=== PATIENT | female | born 1945 | race African-American/Black ===

== ENCOUNTER 2017-08-23 12:15 | Outpatient (CLI) | payer MEDICARE, MEDICAID ==
--- NOTE | 2017-08-23 16:40 | PET ---
PET CT 08/23/17 HISTORY: 72-year-old female with non-small lung cancer diagnosed in September 2015. Patient also has history of colon cancer diagnosed in 2002. Exam is requested for restaging. Last radiation therapy was two year s ago. TECHNIQUE: PET scan with CT attenuation correction was performed from the base of the brain through the proximal thighs following the intravenous administration of 10.8 millicuries of 15-fluorodeoxyglucose in the right antecubital fossa. Imaging was performed after an uptake interval of 47 minutes. COMPARISON: PET CT dated 11/26/16. FINDINGS: No kyleigh hypermetabolism is seen in the neck, chest, axilla, abdomen or pelvis. No hypermetabolic pul monary nodules, liver or adrenal lesions are identified. There is continued increased uptake in the previously seen right 6th, 7th, and 8th rib fractures with a current maximum SUV of 2.7 (previously 3.4). No other hypermetabolic osseous lesions are seen. There is physiologic activity in the GI and tracts and the visualized portions of the brain. The CT scan used for attenuation correction demonstrates no evidence of pleural effusions or ascites. IMPRESSION: No evidence of metastatic disease. POS: [facility]
== END 2017-08-23 12:16 | disposition home or self-care (01) ==
LOC: PET 12:15
PROVIDERS: ATTEND Internal Medicine Hematology & Oncology
DX: C34.91 Malignant neoplasm of unspecified part of right bronchus or lung (principal)
CPT/HCPCS: 78815; A9552

== ENCOUNTER 2017-10-31 22:22 | Observation (INO) | payer MEDICARE, MEDICAID ==
--- NOTE | 2017-10-31 23:01 | RAD ---
TWO VIEWS CHEST 10/31/17 PROVIDED CLINICAL HISTORY: Cough. FINDINGS: Comparison 06/25/08. The cardiac and mediastinal silhouette is within normal limits. Left subclavian cardiac pacing device is noted with lead tips in expected locations of RA and RV. No focal consolidation, pleural fluid or pneumothorax apparent. IMPRESSION: No evidence for acute cardiopulmonary process. POS: [facility]
[2017-10-31] MEDS ORDERED: Acetaminophen 500 MG TAB ONE (23:12)
[2017-10-31 23:32] LABS: Bilirubin Negative (Negative); Blood, Urine Negative (Negative); Clarity CLEAR (Clear); Glucose, Urine (Dipstick) Negative (Negative); Leukocyte Negative (Negative); Nitrite Negative (Negative); Protein, Urine (Dipstick) Trace mg/dL (Neg-Trace); Specific Gravity, Urine 1.012 (1.002-1.036); pH, Urine 6.5 (5.0-9.0)
[2017-11-01 00:34] LABS: #Eosinphils 0.1 thou/uL (0.0-0.7); #Lymphocytes 1.1 thou/uL (1.20-3.40); #Monocytes 0.7 thou/uL (0.11-0.59); #Neutrophils 3.7 thou/uL (1.40-6.50); %Basophils 0.2 % (0.0-1.0); %Eosinophils 2.1 % (0.0-10.0); %Lymphocytes 19.3 % (21.0-51.0); %Monocytes 11.8 % (0.0-10.0); %Neutrophils 66.6 % (42.0-75.0); Hemoglobin 11.7 g/dL (12.0-16.0); Mean Corpuscular HGB CONC 31.3 g/dL (32.0-36.0); Mean Corpuscular Hemoglobin 32.1 pg (27.0-31.0); Mean Platelet Volume 6.9 fL (7.4-10.4); Platelet Count 197 thou/uL (130-400); RBC Distribution Width 12.1 % (11.5-14.5); Red Blood Cell (RBC) Count 3.66 mill/uL (4.20-5.40); White Blood Cell (WBC) Count 5.5 thou/uL (4.8-10.8)
[2017-11-01 00:48] LABS: ALT (SGPT) 12 U/L (8-55); AST (SGOT) 15 U/L (5-34); Albumin 3.8 g/dL (3.4-4.8); Alkaline Phosphatase 84 U/L (40-150); Anion Gap 14 mmol/L (10-20); BUN (Urea Nitrogen) 21 mg/dL (9.8-20.1); Bilirubin, Total 0.2 mg/dL (0.2-1.2); Calc. Creatinine Clearance 0 mL/min (70-130); Calcium 9.4 mg/dL (7.8-10.44); Carbon Dioxide 25 mmol/L (23-31); Chloride 105 mmol/L (98-107); Estimated GFR-MDRD 39; Globulin 3.7 g/dL (2.4-3.5); Lipase 50 U/L (8-78); Magnesium 1.6 mg/dL (1.6-2.6); Potassium 4.7 mmol/L (3.5-5.1); Protein, Total 7.5 g/dL (6.0-8.3); Sodium 139 mmol/L (136-145)
[2017-11-01 00:52] LABS: Glucose 45 mg/dL (83-110)
[2017-11-01] MEDS ORDERED: methylPREDNISolone Sod Succ/PF 125 MG/2 ML VIAL ONE (01:13)
[2017-11-01 03:48] VITALS: BMI 36.9
[2017-11-01] MEDS ORDERED: HYDROcodone/Acetaminophen 10/325 mg Tablet PO SCH (04:45)
[2017-11-01] MEDS ORDERED: ALPRAZolam 1 MG TAB PO SCH (04:45)
[2017-11-01] MEDS ORDERED: Dextrose 50% Abboject 50 ML SYRINGE SLOW IVP PRN (07:44)
[2017-11-01] MEDS ORDERED: Insulin Regular 300 UNITS/3 ML VIAL SC PRN (07:44)
[2017-11-01] MEDS ORDERED: Dextrose 5% in Water 1,000 ML IV PRN (07:44)
[2017-11-01] MEDS ORDERED: Acetaminophen 325 MG TAB PO PRN (07:45)
[2017-11-01] MEDS ORDERED: Calcium Carbonate 500 MG ChewTAB PO PRN (07:45)
[2017-11-01] MEDS ORDERED: Senokot 8.6 MG TAB PO PRN (07:45)
[2017-11-01] MEDS ORDERED: Ondansetron HCl/PF 4 MG/2 ML Vial IVP PRN (07:45)
[2017-11-01] MEDS ORDERED: Ondansetron ODT 4 MG TAB PO PRN (07:45)
[2017-11-01] MEDS ORDERED: Nitroglycerin 0.4 MG TAB (25 Tab Bottle) SL PRN (07:47)
[2017-11-01] MEDS ORDERED: Fluticasone Propionate Nasal Spray 16 gm Bottle NASAL PRN (07:47)
[2017-11-01] MEDS ORDERED: methylPREDNISolone Sod Succ/PF 125 MG/2 ML VIAL IVP SCH (08:00)
[2017-11-01] MEDS ORDERED: Spironolactone 25 MG TAB PO SCH (09:00)
[2017-11-01] MEDS ORDERED: Losartan 25 MG TAB PO SCH (09:00)
[2017-11-01] MEDS ORDERED: Enoxaparin Sodium 40 MG/0.4 ML SYRINGE SC SCH (09:00)
[2017-11-01] MEDS ORDERED: Spiriva 18 MCG CAP (Box of 5 Caps) INH SCH (09:00)
[2017-11-01] MEDS ORDERED: cloNIDine 0.1 MG TAB PO SCH (09:00)
[2017-11-01] MEDS ORDERED: Benzonatate 100 MG CAP PO PRN (09:48)
[2017-11-01] MEDS ORDERED: Cepastat Lozenges 1 LOZ PO PRN (09:48)
[2017-11-01] MEDS ORDERED: Diabetic Tussin 200 MG/10 ML UDCUP PO PRN (09:48)
[2017-11-01] MEDS ORDERED: guaiFENesin/Codeine Phosphate 200 mg/20 mg 10 ml UD Cup PO PRN (09:55)
[2017-11-01] MEDS ORDERED: hydrALAZINE 20 MG/ML VIAL SLOW IVP PRN (09:56)
[2017-11-01] MEDS ORDERED: Oseltamivir 75 MG CAP PO SCH (10:00)
[2017-11-01] MEDS ORDERED: cefTRIAXone\\ROCEPHIN 1 GM in Sodium Chloride 0.9% 100 ML IVPB SCH (10:00)
[2017-11-01] MEDS ORDERED: Doxycycline 100 MG CAP PO SCH (10:00)
[2017-11-01] MEDS: Docusate 100 MG CAP PO SCH ×2 (10:20→20:34)
[2017-11-01] MEDS: guaiFENesin ER 600 MG TAB PO SCH ×2 (10:21→20:34)
[2017-11-01] MEDS: Famotidine 20 MG TAB PO SCH ×2 (10:21→20:33)
[2017-11-01] MEDS: Gabapentin 300 MG CAP PO SCH ×3 (10:23→20:34)
[2017-11-01] MEDS: Atorvastatin Calcium 20 MG TAB PO SCH (10:23)
[2017-11-01] MEDS: Carvedilol 3.125 MG TAB PO SCH ×2 (10:24→20:34)
--- NOTE | 2017-11-01 10:31 | HP ---
DATE OF ADMISSION: 11/01/2017 PRIMARY CARE PHYSICIAN: Dr. Shaggy Murray at [facility]. PRIMARY ED TECH: Dr. Luong at [facility]. CHIEF COMPLAINT: Shortness of breath with fever and generalized weakness of 2 days duration. HISTORY OF PRESENT ILLNESS: Patient is a 72-year-old female with COPD, chronic systolic and diastolic heart failure, status post AICD, diabetes mellitus type 2 , history of lung cancer status post radiation, and chronic kidney disease stage 3, who presented to the emergency room with above complaints. Over the last two days, the patient developed gradual worsening cough that was productive of small amount of thick phlegm. She also had fever along with chills. She complains of chest tightness and wheezing. One of a family member was recently diagnosed with flu. She felt generally weak and fatigued. No orthopnea, leg swelling, palpitations, or syncope reported. She denies recent immobilization or travel. In the emergency room, her maximum temperature was 101.5 with respiration of 22 , pulse rate of 106, and blood pressure 129/86 with initial oxygen saturation of 89% on room air. Chest x-ray was negative for infiltrate. Influenza testing was negative. She received Solu-Medrol with IV steroids, DuoNebs, and Tylenol in the emergency room. PAST MEDICAL HISTORY: 1. Chronic systolic and diastolic heart failure, status post AICD. 2. Chronic obstructive pulmonary disease. 3. Diabetes mellitus type 2. 4. Hypertension. 5. History of lung cancer, status post radiation. 6. Chronic kidney disease, stage 3. 7. Hypertension. 8. Chronic anemia. 9. Chronic obstructive pulmonary disease. 10. Tobacco dependence. 11. Obstructive sleep apnea, not on CPAP. 12. Glaucoma. 13. History of left upper extremity DVT. 14. Anxiety, depression, and bipolar disorder. PAST SURGICAL HISTORY: 1. Colon cancer surgery. 2. Appendectomy. 3. Cholecystectomy. 4. Hernia repair. 5. Tonsillectomy. 6. Colectomy. ALLERGIES: No known drug allergies. CURRENT HOME MEDICATIONS: The patient is unable to recall all of her home medications. Family to get accurate list of medications later today. SOCIAL HISTORY: Patient uses smokeless tobacco. No alcohol or drug use. Lives at home with her family. She is FULL CODE, makes her own decision. FAMILY HISTORY: Negative for premature coronary artery disease, stroke, or cancer. REVIEW OF SYSTEMS: The following complete review of systems was negative, unless otherwise mentioned in the HPI or below: Constitutional: Weight loss or gain, ability to conduct usual activities. Skin : Rash, itching. Eyes: Double vision, pain. ENT/Mouth: Nose bleeding, neck stiffness, pain, tenderness. Cardiovascular: Palpitations, dyspnea on exertion, orthopnea. Respiratory: Shortness of breath, wheezing, cough, hemoptysis, fever or night sweats. Gastrointestinal: Poor appetite, abdominal pain, heartburn, nausea, vomiting, constipation, or diarrhea. Genitourinary: Urgency, frequency, dysuria, nocturia. Musculoskeletal: Pain, swelling. Neurologic/Psychiatric: Anxiety, depression. Allergy/Immunologic: Skin rash, bleeding tendency. PHYSICAL EXAMINATION: VITAL SIGNS: As discussed above. GENERAL: A 72-year-old female in mild respiratory distress. Overall, feels much better after the ER treatments. HEENT: Head atraumatic, normocephalic. Sclerae anicteric. Moist mucous membranes. No oral lesion. NECK: Supple, no JVD appreciated. No carotid bruit. LUNGS: Showed scattered expiratory wheezing. No significant rhonchi or rales. There was mild accessory muscle use. Trachea was in midline. HEART: S1 and S2 present. Regular rate and rhythm, 2/6 systolic murmur over the mitral area. AICD noted. ABDOMEN: Soft, nontender, bowel sounds present. EXTREMITIES: No edema or calf tenderness. NEUROLOGIC: Grossly nonfocal, moves all four extremities. PSYCHIATRY: Alert, awake, oriented x3. SKIN: Warm and dry. LYMPH NODES: No palpable lymph nodes in the neck. PERIPHERAL VASCULAR: Radial pulses palpable bilaterally. MUSCULOSKELETAL: No joint swelling or tenderness. LABORATORY FINDINGS: CBC showed WBC 5.5 with hemoglobin 11.7, hematocrit 37.4, platelet of 197. Chemistries showed sodium 139, potassium 4.7, chloride 105, bicarb 25, BUN 21, creatinine 1.59. BNP was 89. Troponins not done. Urinalysis was negative. Influenza testing was negative. Chest x-ray by my review was negative for infiltrate. IMPRESSION: 1. Acute hypoxic respiratory failure due to Chronic obstructive pulmonary disease exacerbation. r/o Flu 2. Systemic inflammatory response syndrome secondary to above. 3. Chronic kidney disease, stage 3. 4. Obesity with a BMI of 37. 5. Chronic systolic and diastolic heart failure, status post AICD, followed by [facility]. 6. Ongoing tobacco dependence (smokeless tobacco). 7. Hypertension. 8. Hyperlipidemia. 9. Anxiety and depression. 10. Glaucoma. 11. History of lung cancer, status post radiation. PLAN: The patient will be monitored on the medical floor as a 23-hour observation. We will continue oxygen, nebulizer treatment, steroids, and antibiotics. We will get respiratory viral panel for possible influenza. We will give one dose of Tamiflu. Resume her home medications once confirmed. DVT prophylaxis with Lovenox. Walking program. Antitussives. Repeat labs in a.m. We will get one set of troponins due to her extensive cardiac history. Plan of care was discussed with the patient in detail. She stated understanding. ZELALEMD
[2017-11-01 11:03] LABS: Troponin I 0.013 ng/mL (< 0.028)
[2017-11-01] MEDS: HYDROcodone/Acetaminophen 5/325 mg Tablet PO PRN ×2 (12:38→22:08)
[2017-11-01] MEDS: cefTRIAXone\\ROCEPHIN 1 GM, Syringe 0.4 ML in Sterile Water 9.6 ML SLOW IVP SCH (12:39)
[2017-11-01] MEDS ORDERED: Insulin Detemir 100 UNITS/ML 10 UNITS in Pre-Filled Syringe 1 EACH SC SCH ×2 (13:15→21:15)
[2017-11-01] MEDS: cloNIDine 0.1 MG TAB PO SCH ×2 (15:00→20:35)
[2017-11-01] MEDS: glyBURIDE 5 MG TAB PO SCH (17:20)
[2017-11-01] MEDS: Insulin Regular 300 UNITS/3 ML VIAL SC PRN ×2 (17:21→20:36)
[2017-11-01] MEDS: Oseltamivir 75 MG CAP PO SCH (20:33)
[2017-11-01] MEDS: Doxycycline 100 MG CAP PO SCH (20:33)
[2017-11-01] MEDS ORDERED: cloNIDine 0.3 MG TAB PO SCH (21:00)
[2017-11-01] MEDS: ALPRAZolam 0.25 MG TAB PO PRN (22:08)
[2017-11-02] MEDS: Insulin Regular 300 UNITS/3 ML VIAL SC PRN ×4 (02:06→20:53)
[2017-11-02 05:51] LABS: #Lymphocytes 0.8 thou/uL (1.20-3.40); #Monocytes 0.4 thou/uL (0.11-0.59); #Neutrophils 5.5 thou/uL (1.40-6.50); %Basophils 0.2 % (0.0-1.0); %Eosinophils 0.2 % (0.0-10.0); %Lymphocytes 11.6 % (21.0-51.0); %Monocytes 6.3 % (0.0-10.0); %Neutrophils 81.7 % (42.0-75.0); Mean Corpuscular HGB CONC 31.6 g/dL (32.0-36.0); Mean Corpuscular Hemoglobin 32.2 pg (27.0-31.0); Mean Platelet Volume 7.6 fL (7.4-10.4); Platelet Count 175 thou/uL (130-400); RBC Distribution Width 11.9 % (11.5-14.5); Red Blood Cell (RBC) Count 3.73 mill/uL (4.20-5.40); White Blood Cell (WBC) Count 6.8 thou/uL (4.8-10.8)
[2017-11-02 05:59] LABS: ALT (SGPT) 12 U/L (8-55); AST (SGOT) 16 U/L (5-34); Albumin 3.8 g/dL (3.4-4.8); Alkaline Phosphatase 85 U/L (40-150); Anion Gap 13 mmol/L (10-20); BUN (Urea Nitrogen) 34 mg/dL (9.8-20.1); Bilirubin, Total Less than 0.2 mg/dL (0.2-1.2); Calc. Creatinine Clearance 55 mL/min (70-130); Calcium 8.7 mg/dL (7.8-10.44); Carbon Dioxide 25 mmol/L (23-31); Chloride 100 mmol/L (98-107); Estimated GFR-MDRD 34; Globulin 3.8 g/dL (2.4-3.5); Glucose 287 mg/dL (83-110); Potassium 6.2 mmol/L (3.5-5.1); Protein, Total 7.6 g/dL (6.0-8.3); Sodium 132 mmol/L (136-145)
[2017-11-02] MEDS ORDERED: Sodium Bicarb 50 MEQ/50 ML Abboject 8.4% SYRINGE IVP STA (07:14)
[2017-11-02] MEDS ORDERED: Insulin Regular 300 UNITS/3 ML VIAL IVP SCH (07:15)
[2017-11-02] MEDS ORDERED: Sodium Chloride 0.9% 500 ML IV SCH (07:15)
[2017-11-02] MEDS ORDERED: Furosemide 40 MG/4 ML VIAL SLOW IVP SCH (07:45)
[2017-11-02] MEDS ORDERED: predniSONE 20 MG TAB PO SCH (08:00)
[2017-11-02] MEDS: glyBURIDE 5 MG TAB PO SCH ×2 (08:25→16:32)
[2017-11-02] MEDS: Oseltamivir 75 MG CAP PO SCH ×2 (08:25→20:52)
[2017-11-02] MEDS: Atorvastatin Calcium 20 MG TAB PO SCH (08:25)
[2017-11-02] MEDS: Gabapentin 300 MG CAP PO SCH ×3 (08:25→20:52)
[2017-11-02] MEDS: Famotidine 20 MG TAB PO SCH ×2 (08:26→20:52)
[2017-11-02] MEDS: Docusate 100 MG CAP PO SCH ×2 (08:26→20:52)
[2017-11-02] MEDS: Doxycycline 100 MG CAP PO SCH ×2 (08:26→20:52)
[2017-11-02] MEDS: guaiFENesin ER 600 MG TAB PO SCH ×2 (08:26→20:52)
[2017-11-02] MEDS: Carvedilol 3.125 MG TAB PO SCH ×2 (08:27→20:53)
[2017-11-02] MEDS: cloNIDine 0.1 MG TAB PO SCH ×3 (08:27→21:32)
[2017-11-02] MEDS: HYDROcodone/Acetaminophen 5/325 mg Tablet PO PRN ×3 (08:40→21:33)
[2017-11-02] MEDS: ALPRAZolam 0.25 MG TAB PO PRN ×2 (08:40→20:52)
--- NOTE | 2017-11-02 09:40 | RAD ---
CHEST 2 VIEWS: COMPARISON: 10/31/17. HISTORY: Cough. Shortness of breath. Pneumonia. FINDINGS: Stable left-sided defibrillator. Magnification of cardiac silhouette likely due to technique. Pulmo nary vessels and hilum are normal. Costophrenic angles are clear. Patchy interstitial opacities in the lateral right lung base. Adequate aeration of the upper lungs. No pneumothorax. IMPRESSION: Patchy interstitial opacity in the lateral right lung base. POS: [facility]
[2017-11-02] MEDS: cefTRIAXone\\ROCEPHIN 1 GM, Syringe 0.4 ML in Sterile Water 9.6 ML SLOW IVP SCH (12:23)
[2017-11-02 12:38] LABS: Anion Gap 13 mmol/L (10-20); BUN (Urea Nitrogen) 38 mg/dL (9.8-20.1); Calc. Creatinine Clearance 51 mL/min (70-130); Calcium 8.3 mg/dL (7.8-10.44); Carbon Dioxide 27 mmol/L (23-31); Chloride 99 mmol/L (98-107); Estimated GFR-MDRD 31; Glucose 296 mg/dL (83-110); Sodium 134 mmol/L (136-145)
--- NOTE | 2017-11-02 14:22 | PDOC.PN ---
- Subjective Encounter Start Date: 11/02/17 Encounter Start Time: 14:00 Patient seen and examined. SOB/wheezing slowly improving. No overnight events - Objective Resuscitation Status: Resuscitation Status FULL:Full Resuscitation MAR Reviewed: Yes Vital Signs & Weight: Vital Signs (12 hours) Temp Pulse Resp BP BP Pulse Ox 11/02/17 11:38 87 16 94 L 11/02/17 11:30 98.3 F 79 22 H 114/73 98 11/02/17 08:27 110/57 L 11/02/17 08:00 98.2 F 87 22 H 110/57 L 99 11/02/17 07:25 78 16 100 11/02/17 06:23 98.5 F 66 18 121/79 99 Weight Weight 265 lb I&O: 11/01/17 11/02/17 11/03/17 06:59 06:59 06:59 Intake Total 360 Balance 360 Result Diagrams: 11/02/17 04:02 11/02/17 12:06 Additional Labs: Accuchecks 11/02/17 11/02/17 11/02/17 11:33 04:51 02:01 POC Glucose 336 H 299 H 286 H 11/01/17 11/01/17 20:25 16:08 POC Glucose 429 H 412 H Radiology Reviewed by me: Yes (Patchy infiltrate R base) Phys Exam - Physical Examination Constitutional: NAD Respiratory: no rhonchi Exp wheezing +, Scat rales at bases, Mild accessory muscle use, Symmetrical Cardiovascular: RRR, no rub no heaves/pulsations Gastrointestinal: soft, non-tender, no distention, positive bowel sounds Musculoskeletal: no edema Neurological: non-focal, moves all 4 limbs Psychiatric: A&O x 3 Dx/Plan - Plan DVT proph w/SCDs IMPRESSION: 1. Acute hypoxic respiratory failure due to Chronic obstructive pulmonary disease exacerbation with influenza B 2. Systemic inflammatory response syndrome due to influenza B with R basilar pneumonia ?Pneumococcal 3. VERA on Chronic kidney disease, stage 3 with severe hyperkalemia 4. Obesity with a BMI of 37. 5. Chronic systolic and diastolic heart failure, status post AICD, followed by [facility]. 6. Ongoing tobacco dependence (smokeless tobacco). 7. Hypertension. 8. Hyperlipidemia. 9. Anxiety and depression. 10. Glaucoma. 11. History of lung cancer, status post radiation. PLAN: * Patient received Kayexalate/Insulin and bicarb early today * Hold Aldactone/Losartan * AM labs * Home O2 assessment - Patient is 84 % on RA * Cont Tamiflu with Atbx * DC in AM if stable * Cont Levemir with sliding scale * Cont current meds as below Laboratory Tests 11/02/17 04:02 Potassium 6.2 H Review of Systems - Review of Systems Cardiovascular: negative: chest pain, palpitations, orthopnea, paroxysmal nocturnal dyspnea, edema, light headedness Gastrointestinal: negative: Nausea, Vomiting, Abdominal Pain, Diarrhea, Constipation, Melena, Hematochezia - Medications/Allergies Allergies/Adverse Reactions: Allergies Allergy/AdvReac Type Severity Reaction Status Date / Time No Known Allergies Allergy Verified 02/23/17 23:55 Medications: Current Medications Acetaminophen (Tylenol) 650 mg PO Q4H PRN PRN Reason: Headache/Fever or Pain Hydrocodone Bitart/Acetaminophen (Bastrop 5/325) 1 tab PO Q6H PRN PRN Reason: Moderate Pain (4-6) Last Admin: 11/02/17 08:40 Dose: 1 tab Albuterol/Ipratropium (Duoneb) 3 ml NEB [id number] PRN PRN Reason: SOB &/or Wheezing Albuterol/Ipratropium (Duoneb) 3 ml NEB [id number] [facility] Last Admin: 11/02/17 11:38 Dose: 3 ml Alprazolam (Xanax) 0.25 mg PO BIDPRN PRN PRN Reason: Anxiety Last Admin: 11/02/17 08:40 Dose: 0.25 mg Aspirin (Aspirin Chewable) 81 mg PO DAILY [facility] Last Admin: 11/02/17 08:25 Dose: 81 mg Atorvastatin Calcium (Lipitor) 20 mg PO DAILY [facility] Last Admin: 11/02/17 08:25 Dose: 20 mg Benzonatate (Tessalon) 100 mg PO TIDPRN PRN PRN Reason: Cough Calcium Carbonate (Tums) 1,000 mg PO Q4H PRN PRN Reason: Heartburn or Indigestion Carvedilol (Coreg) 3.125 mg PO BID [facility] Last Admin: 11/02/17 08:27 Dose: Not Given Clonidine (Catapres) 0.1 mg PO TID [facility] Last Admin: 11/02/17 08:27 Dose: Not Given Dextrose/Water (Dextrose 50%) 25 gm SLOW IVP PRN PRN PRN Reason: Hypoglycemia Docusate Sodium (Colace) 100 mg PO BID [facility] Last Admin: 11/02/17 08:26 Dose: 100 mg Doxycycline Hyclate (Vibramycin) 100 mg PO BID [facility] Last Admin: 11/02/17 08:26 Dose: 100 mg Famotidine (Pepcid) 20 mg PO BID [facility] Last Admin: 11/02/17 08:26 Dose: 20 mg Fluticasone Propionate (Flonase Nasal [place]) 0 gm NASAL DAILY PRN PRN Reason: Allergies Furosemide (Lasix) 40 mg PO DAILY-[facility] Gabapentin (Neurontin) 600 mg PO TID [facility] Last Admin: 11/02/17 08:25 Dose: 600 mg Glucagon (Glucagon) 1 mg IM PRN PRN PRN Reason: Hypoglycemia Glyburide (Diabeta) 5 mg PO BID-[facility] Last Admin: 11/02/17 08:25 Dose: 5 mg Guaifenesin (Mucinex) 600 mg PO Q12HR [facility] Last Admin: 11/02/17 08:26 Dose: 600 mg Guaifenesin (Robitussin Sf) 200 mg PO Q4H PRN PRN Reason: Cough Last Admin: 11/01/17 10:32 Dose: 200 mg Guaifenesin/Codeine Phosphate (Robitussin Ac) 5 ml PO Q4H PRN PRN Reason: Cough Hydralazine HCl (Apresoline) 10 mg SLOW IVP Q4H PRN PRN Reason: SBP Greater Than 180 Dextrose/Water (D5w) 1,000 mls @ 0 mls/hr IV .Q0M PRN; As Directed PRN Reason: Hypoglycemia Ceftriaxone Sodium 1 gm/ (Syringe 0.4 ml/ Sterile Water) 10 mls @ 120 mls/hr SLOW IVP Q24HR [facility] Last Admin: 11/02/17 12:23 Dose: 10 mls Insulin Detemir 10 units/ (Miscellaneous Medication) 0.1 mls @ 0 mls/hr NH NOW [facility] Stop: 11/02/17 23:15 Last Admin: 11/01/17 22:09 Dose: 0.1 mls Insulin Detemir 30 units/ (Miscellaneous Medication) 0.3 mls @ 0 mls/hr NH 1830 [facility] Insulin Human Regular (Humulin R) 0 units SC .BEDTIME SLIDING SC PRN PRN Reason: Bedtime Correctional Scale Last Admin: 11/02/17 02:06 Dose: 3 unit Insulin Human Regular (Humulin R) 0 units SC .MODERATE SLIDING SC PRN PRN Reason: Moderate Correctional Scale Last Admin: 11/02/17 12:25 Dose: 8 unit Nitroglycerin (Nitrostat) 0.4 mg SL Q5MIN PRN PRN Reason: Chest Pain Ondansetron HCl (Zofran Odt) 4 mg PO Q6H PRN PRN Reason: Nausea/Vomiting Ondansetron HCl (Zofran) 4 mg IVP Q6H PRN PRN Reason: Nausea/Vomiting Oseltamivir Phosphate (Tamiflu) 75 mg PO BID [facility] Stop: 11/05/17 21:01 Last Admin: 11/02/17 08:25 Dose: 75 mg Prednisone (Prednisone) 10 mg PO QA-[facility] Senna (Senokot) 2 tab PO HSPRN PRN PRN Reason: Constipation Sodium Chloride (Flush - Normal Saline) 10 ml IVF Q12HR [facility] Last Admin: 11/02/17 08:27 Dose: 10 ml Sodium Chloride (Flush - Normal Saline) 10 ml IVF PRN PRN PRN Reason: Saline Flush Throat Lozenges (Cepastat Lozenges) 1 zurdo PO Q2H PRN PRN Reason: Sore Throat Last Admin: 11/01/17 12:37 Dose: 1 zurdo
[2017-11-02] MEDS ORDERED: Insulin Detemir 100 UNITS/ML 30 UNITS in Pre-Filled Syringe 1 EACH SC SCH (18:30)
[2017-11-02] MEDS: Senokot S 8.6-50 MG TAB PO SCH (20:52)
[2017-11-02] MEDS ORDERED: Polyethylene Glycol 3350 17 GM Packet PO SCH (21:00)
[2017-11-03 05:26] LABS: Anion Gap 11 mmol/L (10-20); BUN (Urea Nitrogen) 32 mg/dL (9.8-20.1); Calc. Creatinine Clearance 58 mL/min (70-130); Calcium 8.7 mg/dL (7.8-10.44); Carbon Dioxide 36 mmol/L (23-31); Chloride 99 mmol/L (98-107); Estimated GFR-MDRD 36; Glucose 94 mg/dL (83-110); Potassium 4.6 mmol/L (3.5-5.1); Sodium 141 mmol/L (136-145)
[2017-11-03] MEDS: HYDROcodone/Acetaminophen 5/325 mg Tablet PO PRN (06:42)
[2017-11-03] MEDS ORDERED: Furosemide 40 MG TAB PO SCH (07:30)
[2017-11-03] MEDS ORDERED: predniSONE 20 MG TAB PO SCH (08:00)
[2017-11-03] MEDS: glyBURIDE 5 MG TAB PO SCH ×2 (08:14→15:54)
[2017-11-03] MEDS: Doxycycline 100 MG CAP PO SCH (08:14)
[2017-11-03] MEDS: Gabapentin 300 MG CAP PO SCH ×2 (08:15→15:53)
[2017-11-03] MEDS: guaiFENesin ER 600 MG TAB PO SCH (08:16)
[2017-11-03] MEDS: Oseltamivir 75 MG CAP PO SCH (08:16)
[2017-11-03] MEDS: Docusate 100 MG CAP PO SCH (08:16)
[2017-11-03] MEDS: Atorvastatin Calcium 20 MG TAB PO SCH (08:16)
[2017-11-03] MEDS: Famotidine 20 MG TAB PO SCH (08:16)
[2017-11-03] MEDS: Senokot S 8.6-50 MG TAB PO SCH (08:16)
[2017-11-03] MEDS: cloNIDine 0.1 MG TAB PO SCH ×2 (08:20→15:57)
[2017-11-03] MEDS: Carvedilol 3.125 MG TAB PO SCH (08:21)
[2017-11-03] MEDS: cefTRIAXone\\ROCEPHIN 1 GM, Syringe 0.4 ML in Sterile Water 9.6 ML SLOW IVP SCH (10:31)
[2017-11-03 11:30] VITALS: TEMP 99.6
--- NOTE | 2017-11-03 12:19 | RAD ---
CHEST 1 VIEW: HISTORY: A 72-year-old female with shortness of breath. COMPARISON: 11/02/17. COMPARISON: 11/02/17. FINDINGS: Left ICD. Minimal cardiomegaly. Slight increased markings in the right base with little change, pro bably slight improvement from the 11/02/17 2-view study. The left chest is stable. IMPRESSION: Improving but minimal persistent parenchymal change in the right lower lobe and costophrenic angle re gion. Consider another short-term followup study in 2-3 weeks to document clearing or stability. St able cardiomegaly and left implantable cardioverter defibrillator. No acute edema. POS: [facility]
[2017-11-03] MEDS: Insulin Regular 300 UNITS/3 ML VIAL SC PRN (12:37)
--- NOTE | 2017-11-03 13:00 | DIS ---
DATE OF DISCHARGE: 11/03/2017 DISCHARGE DISPOSITION: Home. FOLLOWUP: 1. Follow up with primary care physician, Dr. Murray at [facility]. 2. Follow up with primary infection preventionist at [facility] next week. 3. Chest x-ray after 4 weeks is recommended. Primary care physician is advised to follow. 4. Base met next week is recommended. Primary care physician is advised to follow. The patient was seen and examined on the day of discharge, denies any new complaints. Overall, gabet omatically feels better. BRIEF HOSPITAL COURSE: Patient is a 72-year-old female with COPD, chronic systolic and diastolic hea rt failure, status post AICD, and diabetes mellitus type 2, who presented to the hospital with shortn ess of breath with fever and generalized weakness of 2 days duration. Her temperature in the ER was 101.5 with respirations 22, pulse rate of 106 with O2 saturation of 89% on room air. Initial chest x -ray on admission was negative. Influenza testing was negative. PCR for respiratory virus was posit nyasia for influenza group B. The chest x-ray next day was positive for infiltrate at the right base. She was placed on steroids with antibiotics and Tamiflu for pneumonia/COPD exacerbation with influenz a B. The next day, her potassium was 6.2 from 4.7. For this reason, the losartan and Aldactone has been held. She will benefit from a repeat labs next week. She received Kayexalate with bicarbonate and insulin. Over the last 24 hours, her potassium has been stable. This morning her potassium is 4 .6. Creatinine today is 1.69 with a BUN 32. She will need a repeat bicarbonate testing next week. She was advised to hold losartan and Aldactone. Metformin has been discontinued due to elevated crea tinine as well. Plan of care was discussed with the patient and the family in detail, they stated understanding. DISCHARGE MEDICATIONS: 1. Prednisone 10 mg daily for next 4 days. 2. Omnicef 300 mg daily for 7 days. 3. Doxycycline 100 mg b.i.d. #14. 4. Mucinex twice a day. 5. Tamiflu 75 mg twice a day. 6. Other home medications were resumed. MEDICATIONS DISCONTINUED THIS ADMISSION: Metformin, losartan, and Aldactone due to potassium of 6.2. FINAL DIAGNOSES: 1. Acute hypoxic respiratory failure due to chronic obstructive pulmonary disease exacerbation with pneumonia and influenza B infection. 2. Systemic inflammatory response syndrome secondary to influenza B with right basilar pneumonia, vazquez spected pneumococcal. 3. Acute kidney injury on chronic kidney disease stage 3 with severe hyperkalemia, probably due to s epsis, improved. 4. Obesity with a BMI 37. 5. Chronic systolic and diastolic heart failure, status post AICD. 6. Ongoing smokeless tobacco dependence. 7. Hypertension. 8. Hyperlipidemia. 9. Anxiety and depression. 10. Glaucoma. 11. History of lung cancer, status post radiation. 12. Chronic anemia. 13. Obstructive sleep apnea, not on CPAP. Primary care physician advised to follow. 14. Glaucoma. 15. Anxiety, depression, and bipolar disorder. 16. Chronic respiratory failure, on home oxygen. Total time coordinating the discharge of this patient was 38 minutes. Home oxygen has been arranged.
--- NOTE | 2017-11-03 14:37 | RAD ---
KUB: DATE: 11/03/17. PROVIDED CLINICAL HISTORY: Abdominal pain. FINDINGS: The abdominal bowel gas pattern is nonspecific. Conspicuous colonic fecal retention suggests constip ation. Cholecystectomy clips are seen in the right upper quadrant. The supine nature of the study i s not sensitive for detection of pneumoperitoneum. IMPRESSION: Nonspecific bowel gas pattern. POS: [facility]
[2017-11-03 15:58] VITALS: BP 137/78
== END 2017-11-03 16:00 | disposition home or self-care (01) ==
LOC: ERS 22:22 → T4-B 11-01 02:00
PROVIDERS: ADMIT Internal Medicine Infectious Disease; ATTEND Internal Medicine Infectious Disease
DX: J44.9 Chronic obstructive pulmonary disease, unspecified (principal); J96.01 Acute respiratory failure with hypoxia; A41.89 Other specified sepsis; J10.1 Influenza due to other identified influenza virus with other respiratory manifestations; J10.00 Influenza due to other identified influenza virus with unspecified type of pneumonia; I13.0 Hypertensive heart and chronic kidney disease with heart failure and stage 1 through stage 4 chronic kidney disease, or unspecified chronic kidney disease; E11.22 Type 2 diabetes mellitus with diabetic chronic kidney disease; N18.3 Chronic kidney disease, stage 3 (moderate); I50.42 Chronic combined systolic (congestive) and diastolic (congestive) heart failure; G47.33 Obstructive sleep apnea (adult) (pediatric); F31.9 Bipolar disorder, unspecified; D63.1 Anemia in chronic kidney disease; N17.9 Acute kidney failure, unspecified; F17.290 Nicotine dependence, other tobacco product, uncomplicated; E87.5 Hyperkalemia; E78.5 Hyperlipidemia, unspecified; F41.8 Other specified anxiety disorders; H40.9 Unspecified glaucoma; E66.9 Obesity, unspecified; Z68.37 Body mass index [BMI] 37.0-37.9, adult; Z79.4 Long term (current) use of insulin; Z79.82 Long term (current) use of aspirin; Z79.51 Long term (current) use of inhaled steroids; Z79.899 Other long term (current) drug therapy; Z99.81 Dependence on supplemental oxygen; Z95.810 Presence of automatic (implantable) cardiac defibrillator; Z90.49 Acquired absence of other specified parts of digestive tract; Z90.89 Acquired absence of other organs; Z98.890 Other specified postprocedural states; Z86.718 Personal history of other venous thrombosis and embolism; Z92.3 Personal history of irradiation; Z85.118 Personal history of other malignant neoplasm of bronchus and lung
CPT/HCPCS: 71045; 71046 ×2; 74018; 80048 ×2; 80053 ×2; 81003; 82962 ×3; 83690; 83735 ×2; 83880; 84484; 85025 ×2; 87633; 87798 ×2; 87804 ×2; 94640 ×4; 96372; 96374; 96375 ×2; 96376 ×3; 97139 ×3; 99285; 99406; G0378 ×2; 36415; 36416; 96361; A4216; J0696; J1650; J1815; J1940; J2920; J2930; J7506; J7620

== ENCOUNTER 2017-12-01 22:29 | Emergency (ER) | payer MEDICARE, MEDICAID ==
[~2017-12-01 22:29] MED LIST: ISOVUE-370 76%-LOCM 1 ML ONE
[2017-12-01 22:59] LABS: #Eosinphils 0.1 thou/uL (0.0-0.7); #Lymphocytes 2.6 thou/uL (1.20-3.40); #Monocytes 0.5 thou/uL (0.11-0.59); #Neutrophils 2.9 thou/uL (1.40-6.50); %Basophils 0.4 % (0.0-1.0); %Eosinophils 2.3 % (0.0-10.0); %Lymphocytes 41.8 % (21.0-51.0); %Monocytes 7.6 % (0.0-10.0); %Neutrophils 47.9 % (42.0-75.0); Hemoglobin 12.4 g/dL (12.0-16.0); Mean Corpuscular HGB CONC 32.9 g/dL (32.0-36.0); Mean Corpuscular Hemoglobin 32.8 pg (27.0-31.0); Mean Corpuscular Volume 99.9 fl (81.0-99.0); Mean Platelet Volume 6.8 fL (7.4-10.4); Platelet Count 230 thou/uL (130-400); RBC Distribution Width 12.2 % (11.5-14.5); Red Blood Cell (RBC) Count 3.79 mill/uL (4.20-5.40); White Blood Cell (WBC) Count 6.1 thou/uL (4.8-10.8)
--- NOTE | 2017-12-01 23:00 | RAD ---
PORTABLE CHEST: 12/01/17 HISTORY: Abdominal pain. COMPARISON: 11/03/17. Mild Cardiomegaly. Dual lead pacemaker again noted. Lung berkowitz appear clear. No infiltrate or jonathan a apparent. IMPRESSION: No acute lung process. POS: [facility]
[2017-12-01 23:22] LABS: ALT (SGPT) 9 U/L (8-55); AST (SGOT) 16 U/L (5-34); Albumin 4.1 g/dL (3.4-4.8); Alkaline Phosphatase 90 U/L (40-150); Anion Gap 10 mmol/L (10-20); BUN (Urea Nitrogen) 12 mg/dL (9.8-20.1); Bilirubin, Total 0.4 mg/dL (0.2-1.2); Calc. Creatinine Clearance 0 mL/min (70-130); Carbon Dioxide 32 mmol/L (23-31); Chloride 102 mmol/L (98-107); Estimated GFR-MDRD 50; Globulin 4.1 g/dL (2.4-3.5); Glucose 89 mg/dL (83-110); Lipase 50 U/L (8-78); Potassium 3.3 mmol/L (3.5-5.1); Protein, Total 8.2 g/dL (6.0-8.3); Sodium 141 mmol/L (136-145)
[2017-12-01 23:23] LABS: Bilirubin Negative (Negative); Blood, Urine Negative (Negative); Clarity CLEAR (Clear); Glucose, Urine (Dipstick) Negative (Negative); Leukocyte Negative (Negative); Nitrite Negative (Negative); Protein, Urine (Dipstick) Trace mg/dL (Neg-Trace); Specific Gravity, Urine 1.015 (1.002-1.036); Urobilinogen 0.2 mg/dL (0.2-1.0)
[2017-12-01 23:25] LABS: CKMB 1.9 ng/mL (0-6.6); Troponin I 0.022 ng/mL (< 0.028)
[2017-12-01] MEDS ORDERED: Fentanyl 100 MCG/2 ML VIAL ONE (23:59)
--- NOTE | 2017-12-02 08:00 | CT ---
PRELIMINARY REPORT/[facility]/EMERGENCY AFTER HOURS PROCEDURE: EXAM: CT Angiography Chest With Intravenous Contrast CLINICAL HISTORY: 72 years old, female; Pain; Abdominal pain; Localized; Upper; Chest pain; Prior surgery; Patient HX: Er 21; F72 presents w/ upper abd pain and nausea since this morning. Pt denies bm changes. Pt denies urinary symptoms. Pt has had her gb removed 40 years ago. Pt reports pace maker and defibrillator. Pt reports HX of lung cancer and colon cancer. Pt was recently in the hospital for pneumonia and flu. TECHNIQUE: Axial computed tomographic angiography images of the chest with intravenous contrast using pulmonary embolism protocol. MIP reconstructed images were created and reviewed. Coronal reformatted images were created and reviewed. COMPARISON: No relevant prior studies available. FINDINGS: Pulmonary arteries: Unremarkable. No pulmonary embolism. Aorta: Normal aorta. No thoracic aortic aneurysm. Lungs: Scarring and subsegmental atelectasis in the right middle lobe and right lower lobe. Subsegmental atelectasis in lingula. Lungs otherwise clear. No mass. Pleural space: Unremarkable. No significant effusion. No pneumothorax. Heart: Cardiomegaly. Cardiac device in place. No significant pericardial effusion. No evidence of RV dysfunction. Mediastinum: The esophagus is unremarkable. Bones/joints: Incompletely healed fractures of the lateral right rib cage. No dislocation. Soft tissues: Unremarkable. Lymph nodes: Unremarkable. No enlarged lymph nodes. IMPRESSION: No acute findings. Thank you for allowing us to participate in the care of your patient. Dictated and Authenticated by: Arsen Almonte MD 12/02/2017 12:58 AM Central Time ([place] [employer] [place]) FINAL REPORT CT PULMONARY ANGIOGRAM WITH IV CONTRAST AND 3D POSTPROCESSING: Date: 12/01/17 FINDINGS/IMPRESSION: I agree with the preliminary report given by Arsen Almonte of [facility]. POS: [facility]
--- NOTE | 2017-12-02 08:02 | CT ---
PRELIMINARY REPORT/[facility]/EMERGENCY AFTER HOURS PROCEDURE: EXAM: CT Abdomen and Pelvis With Intravenous Contrast EXAM DATE/TIME: Exam ordered 12/02/2017 12:22 AM CLINICAL HISTORY: 72 years old, female; Pain; Abdominal pain; Localized; Upper; Chest pain; Prior surgery; Patient HX: Er 21; F72 presents w/ upper abd pain and nausea since this morning. Pt denies bm changes. Pt denies urinary symptoms. Pt has had her gb removed 40 years ago. Pt reports pace maker and defibrillator. Pt reports HX of lung cancer and colon cancer. Pt was recently in the hospital for pneumonia and flu. TECHNIQUE: Axial computed tomography images of the abdomen and pelvis with intravenous contrast. COMPARISON: No relevant prior studies available. FINDINGS: Lower thorax: No acute findings. ABDOMEN: Liver: Unremarkable. No mass. Gallbladder and bile ducts: Prior cholecystectomy. No ductal dilation. Pancreas: Unremarkable. No mass. No ductal dilation. Spleen: Unremarkable. No splenomegaly. Adrenals: Unremarkable. No mass. Kidneys and ureters: Indeterminate subcentimeter low-attenuation lesion in the right kidney may be a cyst. No hydronephrosis. Stomach and bowel: Fluid throughout colon of the small bowel and colon, nondilated, suspicious for ga stroenteritis/malabsorption. Colonic diverticulosis. No diverticulitis. No bowel wall thickening or intestinal obstruction. Appendix: Appendix not visualized. No evidence of appendicitis. PELVIS: Bladder: Unremarkable. No mass. Reproductive: Prominence of the endometrial stripe for patient age. ABDOMEN and PELVIS: Intraperitoneal space: Unremarkable. No free air. No significant fluid collection. Bones/joints: No acute fracture. No dislocation. Soft tissues: Chronic postsurgical changes of the anterior abdominal wall. Vasculature: Unremarkable. No abdominal aortic aneurysm. Lymph nodes: Unremarkable. No enlarged lymph nodes. IMPRESSION: 1. Prominence of the endometrial stripe for patient age. Recommend gynecology referral. 2. Fluid throughout colon of the small bowel and colon, nondilated, suspicious for gastroenteritis/ma labsorption. Thank you for allowing us to participate in the care of your patient. Dictated and Authenticated by: Arsen Almonte MD 12/02/2017 12:58 AM Central Time ([place] [employer] [place]) FINAL REPORT CT ABDOMEN AND PELVIS WITH IV CONTRAST: Date: 12/01/17 FINDINGS/IMPRESSION: I agree with the preliminary report given by Dr. Arsen Almonte of [facility]. POS: [facility]
== END 2017-12-02 01:42 | disposition home or self-care (01) ==
LOC: ERS 22:29
DX: K52.9 Noninfective gastroenteritis and colitis, unspecified (principal); E11.22 Type 2 diabetes mellitus with diabetic chronic kidney disease; F31.9 Bipolar disorder, unspecified; F20.9 Schizophrenia, unspecified; F17.220 Nicotine dependence, chewing tobacco, uncomplicated; I12.9 Hypertensive chronic kidney disease with stage 1 through stage 4 chronic kidney disease, or unspecified chronic kidney disease; J44.9 Chronic obstructive pulmonary disease, unspecified; N18.3 Chronic kidney disease, stage 3 (moderate); Z85.038 Personal history of other malignant neoplasm of large intestine; Z85.118 Personal history of other malignant neoplasm of bronchus and lung; Z79.4 Long term (current) use of insulin; Z79.82 Long term (current) use of aspirin; Z79.899 Other long term (current) drug therapy
CPT/HCPCS: 36415; 36416; 71045; 71275; 74177; 80053; 81003; 82553; 83605; 83690; 84484; 85025; 85379; 93005; 96361; 96374; J3010

== ENCOUNTER 2018-02-26 19:53 | Emergency (ER) | payer MEDICARE, MEDICAID ==
[2018-02-26] MEDS ORDERED: Ketorolac Tromethamine 60 MG/2 ML VIAL ONE (21:35)
--- NOTE | 2018-02-26 21:35 | RAD ---
RIGHT FOOT RADIOGRAPHS 3 VIEWS: Date: 02/26/18 PROVIDED CLINICAL HISTORY: Right foot pain. FINDINGS: There is no evidence for fracture or other acute osseous abnormality. If there is persistent clinical concern, conservative management and follow-up imaging are advised. IMPRESSION: As above. POS: [facility]
== END 2018-02-26 21:54 | disposition home or self-care (01) ==
LOC: ERS 19:53
DX: M79.671 Pain in right foot (principal); I12.9 Hypertensive chronic kidney disease with stage 1 through stage 4 chronic kidney disease, or unspecified chronic kidney disease; E11.22 Type 2 diabetes mellitus with diabetic chronic kidney disease; F17.220 Nicotine dependence, chewing tobacco, uncomplicated; N18.3 Chronic kidney disease, stage 3 (moderate); F41.9 Anxiety disorder, unspecified; F31.9 Bipolar disorder, unspecified; F20.9 Schizophrenia, unspecified; J44.9 Chronic obstructive pulmonary disease, unspecified; Z85.038 Personal history of other malignant neoplasm of large intestine; Z85.118 Personal history of other malignant neoplasm of bronchus and lung
CPT/HCPCS: 96372; J1885

== ENCOUNTER 2018-08-11 17:37 | Emergency (ER) | payer MEDICARE, MEDICAID ==
[2018-08-11] MEDS ORDERED: HYDROcodone/Acetaminophen 10/325 mg Tablet ONE (18:24)
--- NOTE | 2018-08-11 18:51 | RAD ---
THREE VIEWS RIGHT SHOULDER: 08/11/18 HISTORY: Fall. Right shoulder pain. AP, internally, externally, and scapular Y-views right shoulder obtained. Three views right shoulder demonstrates no evidence of right shoulder fractures, subluxations or bony lesions. IMPRESSION: Normal three views right shoulder. POS: [facility]
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
== END 2018-08-11 19:54 | disposition home or self-care (01) ==
LOC: ERS 17:37
DX: S40.011A Contusion of right shoulder, initial encounter (principal); S70.01XA Contusion of right hip, initial encounter; J44.9 Chronic obstructive pulmonary disease, unspecified; E11.9 Type 2 diabetes mellitus without complications; I13.0 Hypertensive heart and chronic kidney disease with heart failure and stage 1 through stage 4 chronic kidney disease, or unspecified chronic kidney disease; I50.9 Heart failure, unspecified; N18.3 Chronic kidney disease, stage 3 (moderate); F41.9 Anxiety disorder, unspecified; F31.9 Bipolar disorder, unspecified; F20.9 Schizophrenia, unspecified; F17.220 Nicotine dependence, chewing tobacco, uncomplicated; V89.9XXA Person injured in unspecified vehicle accident, initial encounter
CPT/HCPCS: 71046; 72170; 93005

== ENCOUNTER 2018-10-28 05:14 | Inpatient (IN) | payer MEDICARE, MEDICAID ==
[2018-10-28 06:09] LABS: #Basophils 0.1 thou/uL (0.0-0.2); #Eosinphils 0.1 thou/uL (0.0-0.7); #Monocytes 0.4 thou/uL (0.11-0.59); #Neutrophils 3.2 thou/uL (1.40-6.50); %Basophils 1.2 % (0.0-1.0); %Lymphocytes 34.6 % (21.0-51.0); %Neutrophils 55.2 % (42.0-75.0); Hemoglobin 11.6 g/dL (12.0-16.0); Mean Corpuscular HGB CONC 31.5 g/dL (32.0-36.0); Mean Corpuscular Hemoglobin 31.9 pg (27.0-31.0); Mean Platelet Volume 7.2 fL (7.4-10.4); Platelet Count 188 thou/uL (130-400); RBC Distribution Width 11.9 % (11.5-14.5); Red Blood Cell (RBC) Count 3.64 mill/uL (4.20-5.40); White Blood Cell (WBC) Count 5.8 thou/uL (4.8-10.8)
[2018-10-28 06:24] LABS: ALT (SGPT) 10 U/L (8-55); AST (SGOT) 13 U/L (5-34); Albumin 3.8 g/dL (3.4-4.8); Alkaline Phosphatase 96 U/L (40-150); Anion Gap 13 mmol/L (10-20); BUN (Urea Nitrogen) 23 mg/dL (9.8-20.1); Bilirubin, Total 0.3 mg/dL (0.2-1.2); Calc. Creatinine Clearance 0 mL/min (70-130); Calcium 9.5 mg/dL (7.8-10.44); Carbon Dioxide 24 mmol/L (23-31); Chloride 110 mmol/L (98-107); Estimated GFR-MDRD 43; Globulin 3.2 g/dL (2.4-3.5); Glucose 141 mg/dL (83-110); Potassium 4.5 mmol/L (3.5-5.1); Sodium 142 mmol/L (136-145)
[2018-10-28] MEDS ORDERED: Morphine 4 MG/ML VIAL ONE (07:15)
[2018-10-28] MEDS ORDERED: HumaLOG 300 UNITS/3 ML VIAL SC PRN (07:51)
[2018-10-28] MEDS ORDERED: Dextrose 5% in Water 1,000 ML IV PRN (07:51)
[2018-10-28] MEDS ORDERED: Dextrose 50% Abboject 50 ML SYRINGE SLOW IVP PRN (07:51)
--- NOTE | 2018-10-28 08:18 | RAD ---
PORTABLE CHEST: Date: 10/28/18 PROVIDED CLINICAL HISTORY: Shortness of breath. FINDINGS: Comparison with 12/01/17. Cardiac and mediastinal silhouette is unchanged in appearance. Evaluation is limited by patient body habitus. Left subclavian cardiac pacing device is redemonstrated. No lobar consolidation, large effus ion, or pneumothorax evident. IMPRESSION: No definite evidence for an acute cardiopulmonary process. POS: [facility]
--- NOTE | 2018-10-28 08:44 | CT ---
PRELIMINARY REPORT/[facility]/EMERGENTY AFTER-HOURS PROCEDURE CT Head Without Contrast EXAM DATE/TIME: 10/28/2018 6:13 AM CLINICAL HISTORY: 73 years old, female; Pain; Headache; Headache not specified; Patient HX: 73f presents for evaluation of headache since 0415 this morning. Patient reports she was laying down and all of a sudden could h ear and feel her heartbeat in her head. Patient C/O irritation and pain in head, no other symptoms. TECHNIQUE: Axial computed tomography images of the head/brain without contrast. COMPARISON: No relevant prior studies available. FINDINGS: Brain: There is benign calcification of the falx cerebri. There is no evidence of intracranial hemorr moisés. There are scattered foci of hypoattenuation within the periventricular and subcortical white matter compatible with mild chronic microvascular ischemic change. There is mild parenchymal vo lume loss Ventricles: Normal. No ventriculomegaly. Bones/joints: Normal. No acute fracture. Sinuses: Normal as visualized. No acute sinusitis. Mastoid air cells: Normal as visualized. No mastoid effusion. Soft tissues: Normal. IMPRESSION: No acute intracranial hemorrhage. Thank you for allowing us to participate in the care of your patient. Dictated and Authenticated by: Wilfredo Mann MD 10/28/2018 6:33 AM Central Time ([place] & [place]) FINAL REPORT EMERGENCY AFTER HOURS CT BRAIN: Date: 10/28/18 IMPRESSION: I agree with the preliminary interpretation given by Val. No evidence for intracranial hemorrhage or mass effect. No significant interval change with respect of 02/23/17. POS: [facility]
[2018-10-28] MEDS ORDERED: Regadenoson 0.4 MG/5 ML SYRINGE ONE (09:25)
--- NOTE | 2018-10-28 09:34 | HP ---
CHIEF COMPLAINT: Chest pain and sudden onset of ability to hear and feel heartbeat in her head. HISTORY OF PRESENT ILLNESS: The patient is a 73-year-old a female, who has multiple medical problems and one of them is insomnia and around 4 o'clock, she was not able to sleep and she started having some feeling of heartbeat in her head. This was a new finding. She never had this before. She started having some headache and felt flushed. She called her daughter and the daughter called EMS. When EMS arrived, she also had some complaints of some chest tightness across the front chest and feeling dizzy. There was mild nausea. No vomiting. No abdominal pain or diarrhea. She was brought to the emergency room for further evaluation. She is getting admitted to the hospital for further evaluation for observation and cardiac monitoring. PAST MEDICAL HISTORY: Positive for: 1. Chronic systolic and diastolic heart failure, status post AICD. Apparently, she had an AICD checked over the phone 3 days ago. 2. Chronic obstructive pulmonary disease. 3. Diabetes mellitus type 2. 4. Hypertension. 5. History of lung cancer, status post radiation. 6. Chronic kidney disease, stage 3. 7. Chronic anemia. 8. Tobacco dependence in the past. 9. Obstructive sleep apnea, not on CPAP. 10. Glaucoma. 11. History of left upper extremity DVT. 12. Anxiety, depression and bipolar disorder. 13. Colon cancer. 14. Ventral hernia. PAST SURGICAL HISTORY: 1. Colon cancer surgery. 2. Appendectomy. 3. Cholecystectomy. 4. Hernia repair. 5. Tonsillectomy. 6. Colectomy. ALLERGIES: BENZONATATE. CURRENT MEDICATIONS: Please refer to the medications list. SOCIAL HISTORY: She used to smoke. She quit more than 20 years ago. She does not drink alcohol. She does not use any illicit drugs. FAMILY HISTORY: She does not know her biological parents. She was raised by her uncle. REVIEW OF SYSTEMS: CONSTITUTIONAL: Negative for weight loss or gain. EYES: Negative for eye pain and eye discharge. ENT: Negative for nasal bleeding and nasal congestion. CARDIOVASCULAR: Positive for chest pain and palpitations and some dyspnea. RESPIRATORY: Mild shortness of breath. No cough. GI: Negative for vomiting. Positive for nausea. : Negative for hematuria and dysuria. NEUROLOGIC: Positive for dizziness and mild headache. PSYCHIATRIC: Negative for homicidal or suicidal ideations. PHYSICAL EXAMINATION: GENERAL: She is not in any distress during my visit. She feels cold. She is covered with 3 blankets. VITAL SIGNS: Blood pressure 139/84, pulse is 90, respiratory rate is 22, pulse oximetry is 96% on room air. HEENT: Head is atraumatic and normocephalic. Eyes are PERRLA. Sclerae are nonicteric. Oral mucosa is somewhat dry. NECK: Supple. Some tender on the right side to palpation. CHEST: Lungs are clear. HEART: S1 and S2 normal. No S3. No S4. ABDOMEN: Soft, obese, nontender except for the epigastric area where it is according to her chronically tender. No guarding. No masses. EXTREMITIES: Trace of peripheral edema. NEUROLOGIC: She is alert and oriented x4. There is no any motor or sensory deficits present. Cranial nerves are intact. LABORATORY DATA: Labs showed white count of 5.8, hemoglobin 11.6, hematocrit 36.9, and platelet count 188,000. Sodium of 142, potassium 4.5, chloride 110, BUN 23, creatinine 1.44, glucose 141. BNP of 152.7. Troponin I less than 0.0010. The rest of chemistry is within normal limits. DIAGNOSTIC STUDIES: Chest x-ray did not show any acute cardiopulmonary problem. CT of the brain did not show any acute intracranial abnormalities. EKG, normal sinus rhythm with ventricular rate of 85 beats per minute. No ischemic changes. Borderline criteria for LVH. IMPRESSION: 1. Chest pain with some heart palpitation. 2. Nonischemic cardiomyopathy. 3. Status post automatic implantable cardioverter-defibrillator. 4. Chronic obstructive pulmonary disease. 5. Diabetes mellitus type 2. 6. Hypertension. 7. History of lung cancer, status post radiation. 8. Chronic kidney disease, stage 3. 9. Chronic anemia. 10. Obstructive sleep apnea, not on CPAP. 11. Glaucoma. 12. History of left upper extremity deep venous thrombosis. 13. Anxiety, depression and bipolar disorder. PLAN: Plan is to admit her to telemetry floor for observation. Condition is fair. Activity, bedrest and bathroom privileges. IV Hep-Lock. Heart healthy diabetic diet. Accu-Cheks a.c. and at bedtime and mild sliding scale with Humalog. Echocardiogram, carotid Doppler, and Cardiolite stress test. I will continue her home medications. I am waiting for the list and she will do 5000 units of heparin subcutaneously for DVT prophylaxis and we are going to obtain records of her recent interrogation of her pacemaker/defibrillator. Job ID: [id number]
--- NOTE | 2018-10-28 10:25 | ULT ---
BILATERAL CAROTID DUPLEX ULTRASOUND: Date: 10/28/18 HISTORY: Headache, dizziness, syncope. FINDINGS: Real-time color Doppler evaluation of the right and left carotid systems shows mild plaque formation bilaterally, slightly more prominent at the origin of the right internal carotid artery. On the right side, peak systolic velocities of the common carotid were 59 cm/second. Internal carotid velocities were 53 cm/second and external carotid velocities were 55 cm/second. On the left side, peak systolic velocities of the common carotid were 78 cm/second. Internal carotid velocities were 82 cm/second and external carotid velocities were 47 cm/second. Vertebral flow was antegrade bilaterally. IMPRESSION: No evidence of hemodynamically significant stenosis of either internal carotid artery. POS: [facility]
[2018-10-28 13:21] LABS: Troponin I Less than 0.010 ng/mL (< 0.028)
[2018-10-28] MEDS: ALPRAZolam 0.5 MG TAB PO SCH (14:01)
[2018-10-28] MEDS: Heparin 5,000 UNITS/ML VIAL SC SCH ×3 (15:29→21:11)
[2018-10-28 15:56] VITALS: BMI 37.9
[2018-10-28 16:22] LABS: Troponin I 0.013 ng/mL (< 0.028)
[2018-10-28] MEDS ORDERED: DEXTROMETHORPHAN PO PRN (16:42)
[2018-10-28] MEDS ORDERED: PROMETHAZINE PO PRN (16:42)
[2018-10-28] MEDS ORDERED: Nitroglycerin 0.4 MG TAB (25 Tab Bottle) SL PRN (16:42)
[2018-10-28] MEDS: metFORMIN 500 MG TAB PO SCH (17:14)
[2018-10-28] MEDS: HYDROcodone/Acetaminophen 10/325 mg Tablet PO PRN (17:14)
[2018-10-28] MEDS: glyBURIDE 5 MG TAB PO SCH (17:18)
[2018-10-28] MEDS: ALPRAZolam 1 MG TAB PO PRN (18:25)
[2018-10-28] MEDS ORDERED: Non-Formulary Item 1 EACH (Insulin Glargine,Hum.Rec.Anlog [Lantus Solostar] 30 UNIT) SQ SCH (21:00)
[2018-10-28] MEDS: Famotidine 20 MG TAB PO SCH (21:11)
[2018-10-28] MEDS: Insulin Glargine 30 UNITS in Pre-Filled Syringe SC SCH (21:11)
[2018-10-28] MEDS: Carvedilol 6.25 MG TAB PO SCH (21:11)
[2018-10-28] MEDS: Gabapentin 300 MG CAP PO SCH (21:11)
[2018-10-28] MEDS: guaiFENesin ER 600 MG TAB PO SCH (21:11)
[2018-10-28] MEDS: cloNIDine 0.3 MG TAB PO SCH (21:11)
[2018-10-28] MEDS: Sacubitril 49 MG/Valsartan 51 MG TABLET PO SCH (21:12)
[2018-10-28] MEDS: Temazepam 15 MG CAP PO PRN (21:12)
[2018-10-29] MEDS: HYDROcodone/Acetaminophen 10/325 mg Tablet PO PRN ×2 (04:25→11:26)
[2018-10-29 04:47] LABS: #Eosinphils 0.1 thou/uL (0.0-0.7); #Lymphocytes 1.5 thou/uL (1.20-3.40); #Monocytes 0.4 thou/uL (0.11-0.59); #Neutrophils 2.4 thou/uL (1.40-6.50); %Basophils 0.3 % (0.0-1.0); %Eosinophils 2.8 % (0.0-10.0); %Monocytes 9.8 % (0.0-10.0); %Neutrophils 54.1 % (42.0-75.0); Hemoglobin 10.8 g/dL (12.0-16.0); Mean Corpuscular HGB CONC 31.7 g/dL (32.0-36.0); Mean Corpuscular Hemoglobin 32.4 pg (27.0-31.0); Mean Platelet Volume 8.1 fL (7.4-10.4); Platelet Count 157 thou/uL (130-400); RBC Distribution Width 11.9 % (11.5-14.5); Red Blood Cell (RBC) Count 3.33 mill/uL (4.20-5.40); White Blood Cell (WBC) Count 4.4 thou/uL (4.8-10.8)
[2018-10-29 05:08] LABS: Anion Gap 13 mmol/L (10-20); BUN (Urea Nitrogen) 18 mg/dL (9.8-20.1); Calc. Creatinine Clearance 80 mL/min (70-130); Carbon Dioxide 21 mmol/L (23-31); Chloride 109 mmol/L (98-107); Estimated GFR-MDRD 51; Glucose 146 mg/dL (83-110); Potassium 4.9 mmol/L (3.5-5.1); Sodium 138 mmol/L (136-145)
[2018-10-29] MEDS: Gabapentin 300 MG CAP PO SCH ×3 (09:00→21:24)
[2018-10-29] MEDS ORDERED: Aspirin Chewable 81 MG TAB PO SCH (09:00)
[2018-10-29] MEDS: Famotidine 20 MG TAB PO SCH ×2 (09:00→21:24)
[2018-10-29] MEDS: Spironolactone 25 MG TAB PO SCH (09:00)
[2018-10-29] MEDS: glyBURIDE 5 MG TAB PO SCH ×2 (09:00→17:28)
[2018-10-29] MEDS: metFORMIN 500 MG TAB PO SCH ×2 (09:00→17:28)
[2018-10-29] MEDS: Aspirin 325 MG TAB PO SCH (09:00)
[2018-10-29] MEDS: guaiFENesin ER 600 MG TAB PO SCH ×2 (09:01→21:25)
[2018-10-29] MEDS: Sacubitril 49 MG/Valsartan 51 MG TABLET PO SCH ×2 (09:01→21:25)
[2018-10-29] MEDS: Carvedilol 6.25 MG TAB PO SCH ×2 (09:01→21:24)
[2018-10-29] MEDS: Heparin 5,000 UNITS/ML VIAL SC SCH ×3 (09:01→21:25)
[2018-10-29] MEDS: ALPRAZolam 0.5 MG TAB PO SCH (11:21)
--- NOTE | 2018-10-29 12:04 | NM ---
CARDIAC SPECT: CLINICAL HISTORY: 73-year-old female with chest pain, hypertension, diabetes, COPD, AICD, CHF, and deep venous thrombos is. TECHNIQUE: A myocardial perfusion scan was performed using the single isotope two day protocol with 33 mCi techn etium-99m sestamibi injected intravenously for both stress and rest images. Pharmacologic stress with Lexiscan was monitored and interpreted by Dr. Cedeno. FINDINGS: There are fixed defects in the anteroseptal and inferior izaguirre. No reversible defects are seen. GATED SPECT LVEF: 28%. WALL MOTION EXAM: Global hypokinesis. IMPRESSION: No evidence of reversible ischemia. POS: [facility]
--- NOTE | 2018-10-29 15:19 | PRG ---
DATE OF SERVICE: 10/29/2018 SUBJECTIVE: The patient is seen and examined at bedside. She just came back from the stress test. She has this pounding headache. She feels her heartbeat in the head, which comes and goes home. OBJECTIVE: VITAL SIGNS: Blood pressure is 109/55, pulse is 72, temperature is 97.3, respirations 20, and O2 saturation 96% on room air. HEENT: Head is atraumatic and normocephalic. Eyes are PERRLA. Sclerae are nonicteric. Oral mucosa is moist. NECK: Supple. LUNGS: Clear. HEART: S1 and S2 normal. No S3. No S4. No any murmur. ABDOMEN: Soft and nontender. Bowel sounds are present. No organomegaly. EXTREMITIES: No clubbing, cyanosis, or edema. NEUROLOGIC: She is alert and oriented x4. There is no any motor or sensory deficit present. Cranial nerves are intact. LABORATORY DATA: Labs showed white count of 4.4, hemoglobin 10.8, hematocrit 34.0, MCV 102. Sodium of 138, potassium 4.9, chloride 109, CO2 of 21, BUN 18, creatinine 1.25. Glycemia is ranging from 86 to 221. Troponin I 0.013. IMAGING STUDIES: A carotid Doppler study did not show any hemodynamically significant stenosis in carotid arteries. Stress test nuclear came back negative for any ischemia, but it showed global hypokinesis with LVEF of 28%. Defects in the anteroseptal and inferior izaguirre. IMPRESSION: 1. Chest pain with some heart palpitations, acute coronary syndrome was ruled out. 2. Bilateral pounding headache, most likely vascular etiology. 3. Status post automatic implantable cardioverter-defibrillator. 4. Nonischemic cardiomyopathy. 5. Chronic obstructive pulmonary disease. 6. Diabetes mellitus, type 2. 7. Hypertension. 8. History of lung cancer, status post radiation. 9. Chronic kidney disease, stage 3. 10. Chronic anemia. 11. Obstructive sleep apnea, not on CPAP. 12. Glaucoma. 13. History of left upper extremity deep venous thrombosis. 14. Anxiety, depression, and bipolar disorder. PLAN: Plan is to obtain neurologic consultation with Dr. Figueroa, regarding her current complaint, which is transient feeling of heartbeat in her head and some headache. We will continue her current medications, and we will continue Accu-Cheks a.c. and at bedtime and use sliding scale along with her home medications. One of her aspirin, which is 81 mg will be stopped since she is on 2 different ones on a list. Job ID: [id number]
[2018-10-29] MEDS ORDERED: Metoclopramide HCl 10 MG/2 ML VIAL IVP SCH (17:00)
[2018-10-29] MEDS ORDERED: Ketorolac Tromethamine 30 MG/ML VIAL IVP SCH (17:00)
[2018-10-29] MEDS ORDERED: diphenhydrAMINE 50 MG/ML VIAL IVP SCH (17:00)
[2018-10-29] MEDS: cloNIDine 0.3 MG TAB PO SCH (21:24)
[2018-10-29] MEDS: Insulin Glargine 30 UNITS in Pre-Filled Syringe SC SCH (21:24)
[2018-10-29] MEDS: Temazepam 15 MG CAP PO PRN (21:25)
[2018-10-30] MEDS: HYDROcodone/Acetaminophen 10/325 mg Tablet PO PRN ×2 (00:01→17:29)
[2018-10-30] MEDS: ALPRAZolam 1 MG TAB PO PRN ×2 (00:01→17:29)
[2018-10-30] MEDS: metFORMIN 500 MG TAB PO SCH ×3 (08:22→17:29)
[2018-10-30] MEDS: Aspirin 325 MG TAB PO SCH (08:23)
[2018-10-30] MEDS: Famotidine 20 MG TAB PO SCH ×2 (08:23→20:57)
[2018-10-30] MEDS: Heparin 5,000 UNITS/ML VIAL SC SCH ×3 (08:23→20:57)
[2018-10-30] MEDS: Gabapentin 300 MG CAP PO SCH ×3 (08:23→20:56)
[2018-10-30] MEDS: guaiFENesin ER 600 MG TAB PO SCH ×2 (08:23→20:56)
[2018-10-30] MEDS: Carvedilol 6.25 MG TAB PO SCH ×2 (08:24→20:56)
[2018-10-30] MEDS: Sacubitril 49 MG/Valsartan 51 MG TABLET PO SCH ×2 (08:25→20:56)
[2018-10-30] MEDS: Spironolactone 25 MG TAB PO SCH (08:25)
[2018-10-30] MEDS: Docusate 100 MG CAP PO PRN (15:02)
--- NOTE | 2018-10-30 15:42 | PDOC.PN ---
- Subjective Encounter Start Date: 10/30/18 Encounter Start Time: 11:40 Pt seen for followup re:headache. Says she does not have chest pain at this time. Has on and off headaches. - Objective Resuscitation Status - Order Detail: 10/28/18 07:51 Resuscitation Status Routine Resuscitation Status: FULL: Full Resuscitation MAR Reviewed: Yes Vital Signs & Weight: Vital Signs (12 hours) Temp Pulse Resp BP Pulse Ox 10/30/18 11:02 99.5 F 95 20 144/65 H 92 L 10/30/18 07:56 98.5 F 94 24 H 100/52 L 99 Weight Weight 275 lb 9.6 oz I&O: 10/29/18 10/30/18 10/31/18 06:59 06:59 06:59 Intake Total 810 1660 Output Total 600 Balance 210 1660 Result Diagrams: 10/29/18 04:22 10/29/18 04:22 Additional Labs: Accuchecks 10/30/18 10/30/18 10/30/18 11:06 05:26 01:09 POC Glucose 126 H 104 111 H 10/30/18 10/29/18 10/29/18 00:03 23:01 22:27 POC Glucose 106 136 H 49 L* 10/29/18 10/29/18 10/29/18 21:15 20:16 17:26 POC Glucose 55 L* 61 L 57 L* 10/29/18 16:45 POC Glucose 65 L EKG Reviewed by me: Yes (Tele: NSR) Phys Exam - Physical Examination Obese HEENT: moist MMs Neck: supple Respiratory: clear to auscultation bilateral Cardiovascular: RRR Gastrointestinal: soft Neurological: moves all 4 limbs Psychiatric: normal affect Dx/Plan (1) Headache Code(s): R51 - HEADACHE Status: Acute Comment: CT brain nil acute, continue pain medications (2) CKD stage 3 secondary to diabetes Code(s): E11.22 - TYPE 2 DIABETES MELLITUS W DIABETIC CHRONIC KIDNEY DISEASE; N18.3 - CHRONIC KIDNEY DISEASE, STAGE 3 (MODERATE) Status: Chronic Comment: controlled (3) Diabetes mellitus Code(s): E11.9 - TYPE 2 DIABETES MELLITUS WITHOUT COMPLICATIONS Status: Chronic Qualifiers: Diabetes mellitus type: type 2 Comment: controlled (4) HTN (hypertension) Code(s): I10 - ESSENTIAL (PRIMARY) HYPERTENSION Status: Chronic Qualifiers: Hypertension type: essential hypertension Qualified Code(s): I10 - Essential (primary) hypertension Comment: controlled - Plan * . Review of Systems - Review of Systems Cardiovascular: negative: chest pain, orthopnea, paroxysmal nocturnal dyspnea, edema, light headedness Gastrointestinal: Constipation. negative: Nausea, Vomiting, Abdominal Pain, Diarrhea, Melena, Hematochezia Musculoskeletal: Other (headache) - Medications/Allergies Allergies/Adverse Reactions: Allergies Allergy/AdvReac Type Severity Reaction Status Date / Time benzonatate Allergy Verified 10/29/18 23:03 [From Tessalon Perles] ketorolac [From Toradol] Allergy Verified 10/29/18 23:03 Medications: Current Medications Hydrocodone Bitart/Acetaminophen (Haworth 10/325) 1 tab PO Q8HR PRN PRN Reason: Pain Last Admin: 10/30/18 00:01 Dose: 1 tab Albuterol Sulfate (Proventil Hfa) 1 puff INH Q4HR PRN PRN Reason: Wheezing Alprazolam (Xanax) 1 mg PO BID PRN PRN Reason: Anxiety Last Admin: 10/30/18 00:01 Dose: 1 mg Aspirin (Aspirin) 325 mg PO DAILY [facility] Last Admin: 10/30/18 08:23 Dose: 325 mg Carvedilol (Coreg) 6.25 mg PO BID [facility] Last Admin: 10/30/18 08:24 Dose: 6.25 mg Clonidine (Catapres) 0.3 mg PO HS [facility] Last Admin: 10/29/18 21:24 Dose: 0.3 mg Dextrose/Water (Dextrose 50%) 25 gm SLOW IVP PRN PRN PRN Reason: Hypoglycemia Docusate Sodium (Colace) 100 mg PO BID PRN PRN Reason: Constipation Last Admin: 10/30/18 15:02 Dose: 100 mg Famotidine (Pepcid) 20 mg PO BID [facility] Last Admin: 10/30/18 08:23 Dose: 20 mg Gabapentin (Neurontin) 300 mg PO TID [facility] Last Admin: 10/30/18 15:00 Dose: 300 mg Glucagon (Glucagon) 1 mg IM PRN PRN PRN Reason: Hypoglycemia Guaifenesin (Mucinex) 600 mg PO Q12HR [facility] Last Admin: 10/30/18 08:23 Dose: 600 mg Heparin Sodium (Porcine) (Heparin) 5,000 units SC TID [facility] Last Admin: 10/30/18 15:00 Dose: 5,000 units Dextrose/Water (D5w) 1,000 mls @ 0 mls/hr IV .Q0M PRN PRN Reason: Hypoglycemia Insulin Glargine 30 units/ (Miscellaneous Medication) 0.3 mls @ 0 mls/hr SC HS [facility] Last Admin: 10/29/18 21:24 Dose: Not Given Insulin Human Lispro (Humalog) 0 units SC .MILD SLIDING SCALE PRN PRN Reason: Mild Correctional Scale Metformin HCl (Glucophage) 500 mg PO BID-[facility] Last Admin: 10/30/18 08:22 Dose: Not Given Nitroglycerin (Nitrostat) 0.4 mg SL Q5MIN PRN PRN Reason: Chest Pain Sacubitril/Valsartan (Entresto 49 Mg-51 Mg Tablet) 1 tab PO BID [facility] Last Admin: 10/30/18 08:25 Dose: 1 tab Spironolactone (Aldactone) 25 mg PO DAILY [facility] Last Admin: 10/30/18 08:25 Dose: 25 mg Temazepam (Restoril) 15 mg PO HS PRN PRN Reason: Anxiety/Insomnia Last Admin: 10/29/18 21:25 Dose: 15 mg
[2018-10-30] MEDS: PROVENTIL INHALER 6.7 G (200 INHALATIONS) INH PRN (16:00)
[2018-10-30] MEDS: cloNIDine 0.3 MG TAB PO SCH (20:56)
[2018-10-30] MEDS: Insulin Glargine 30 UNITS in Pre-Filled Syringe SC SCH (20:57)
--- NOTE | 2018-10-30 23:41 | CON ---
DATE OF CONSULTATION: 10/30/2018 CONSULTING PHYSICIAN: Hospitalist Service. IMPRESSION: Persistent migraine-like headache with secondary dizziness. PLAN: Brigid protocol. HISTORY OF PRESENT ILLNESS: Ms. Sinha is a 73-year-old black female, came in with complaints of ongoing headache. This is relatively a new problem for her. She had initial CT scan of the brain, was unremarkable. Her carotid ultrasound was also clear. Her vital signs have been stable and she has been afebrile. All her lab work was normal as well. She complained of a diffuse throbbing headache with some associated dizziness, unsteadiness. She otherwise has not had any nausea or vomiting. She was given a combination of Toradol, Reglan, and Benadryl last night, and had transient improvement. Unfortunately, the headache has returned. She is still rating it an 8/10. PAST MEDICAL HISTORY: Unremarkable. FAMILY HISTORY: Unremarkable. ALLERGIES: NONE. MEDICATIONS: Medication list was reviewed. SOCIAL HISTORY: No illicit drug use or alcohol use. REVIEW OF SYSTEMS: A 10-system review of systems is, otherwise, negative other than abdominal pain. PHYSICAL EXAMINATION: GENERAL: She is morbidly overweight, elderly woman, in no apparent distress. VITAL SIGNS: Stable. She is afebrile. HEENT: Pupils are equal and reactive. Conjunctivae clear. Oropharynx clear. NECK: Supple. EXTREMITIES: No cyanosis, clubbing, or edema. NEUROLOGIC: She is alert and appropriate. Her speech is fluent and clear. Exam is nonfocal. SUMMARY: This is an elderly lady with complaints of headache, nothing else remarkable on her exam or testing, see if she can response to the Brigid protocol. Job ID: [id number]
[2018-10-31] MEDS ORDERED: Ketorolac Tromethamine 30 MG/ML VIAL IVP PRN (01:29)
[2018-10-31] MEDS ORDERED: Dihydroergotamine Mesylate 1 MG/ML AMP SLOW IVP SCH (01:30)
[2018-10-31] MEDS ORDERED: Dexamethasone 4 mg/ml Vial SLOW IVP SCH (01:30)
[2018-10-31] MEDS: HYDROcodone/Acetaminophen 10/325 mg Tablet PO PRN ×3 (01:43→23:17)
[2018-10-31] MEDS: Metoclopramide HCl 10 MG/2 ML VIAL IVP SCH ×3 (01:48→18:38)
[2018-10-31] MEDS: Dihydroergotamine Mesylate 1 MG/ML AMP SLOW IVP SCH ×3 (02:50→18:38)
--- NOTE | 2018-10-31 05:32 | PDOC.EVN ---
Event Note - Event Note Event Note: Pt had low grade fever, ordered labs, cultures, cxr and ua
[2018-10-31 06:37] LABS: Hemoglobin 11.1 g/dL (12.0-16.0); Mean Corpuscular HGB CONC 31.6 g/dL (32.0-36.0); Mean Corpuscular Hemoglobin 32.3 pg (27.0-31.0); Mean Platelet Volume 7.8 fL (7.4-10.4); Platelet Count 169 thou/uL (130-400); RBC Distribution Width 11.8 % (11.5-14.5); Red Blood Cell (RBC) Count 3.45 mill/uL (4.20-5.40); White Blood Cell (WBC) Count 6.8 thou/uL (4.8-10.8)
[2018-10-31 06:43] LABS: Anion Gap 10 mmol/L (10-20); BUN (Urea Nitrogen) 30 mg/dL (9.8-20.1); Calc. Creatinine Clearance 58 mL/min (70-130); Calcium 9.3 mg/dL (7.8-10.44); Carbon Dioxide 26 mmol/L (23-31); Chloride 103 mmol/L (98-107); Estimated GFR-MDRD 35; Glucose 299 mg/dL (83-110); Sodium 133 mmol/L (136-145)
[2018-10-31 07:28] LABS: Band 6 % (5-11); Eosinophils 1 % (0-10); Lymphocytes 11 % (21-51); MDiff Complete? YES; Macrocytosis SLIGHT = 6-15 cells (100X) (0-5/hpf); Neutrophil 81 % (42-75); Platelet Morphology Comment Appears Adequate; Reactive Lymphocytes 1 % (0-10)
--- NOTE | 2018-10-31 08:33 | RAD ---
CHEST ONE VIEW: History: Dyspnea. Follow up. Comparison: 10-28-18 FINDINGS: Cardiac silhouette is magnified by projection. Pulmonary vasculature is unremarkable. Mediastinum is midline with a dual-lead left subclavian cardiac electronic device. Subtle chronic opacity over the l ateral aspect of the right lung base is stable on exams dating back to early 2017 and favored now to represent an active infiltrate. No evidence of pneumothorax. IMPRESSION: Chronic type findings are stable. No active cardiopulmonary abnormalities are demonstrated. POS: [facility]
[2018-10-31] MEDS ORDERED: Vancomycin HCl 1 GM in Premix Bag 1 BAG IVPB SCH (09:15)
[2018-10-31] MEDS: guaiFENesin ER 600 MG TAB PO SCH ×2 (09:30→21:09)
[2018-10-31] MEDS: metFORMIN 500 MG TAB PO SCH ×2 (09:30→18:19)
[2018-10-31] MEDS: Carvedilol 6.25 MG TAB PO SCH ×2 (09:30→21:09)
[2018-10-31] MEDS: Aspirin 325 MG TAB PO SCH (09:30)
[2018-10-31] MEDS: Sacubitril 49 MG/Valsartan 51 MG TABLET PO SCH (09:30)
[2018-10-31] MEDS: Gabapentin 300 MG CAP PO SCH ×3 (09:30→21:10)
[2018-10-31] MEDS: Spironolactone 25 MG TAB PO SCH (09:30)
[2018-10-31] MEDS: Famotidine 20 MG TAB PO SCH ×2 (09:31→21:10)
[2018-10-31] MEDS: Bisacodyl 5 MG TAB PO PRN (09:31)
[2018-10-31] MEDS: Heparin 5,000 UNITS/ML VIAL SC SCH ×3 (09:31→21:10)
[2018-10-31 09:46] LABS: ALT (SGPT) 12 U/L (8-55); AST (SGOT) 15 U/L (5-34); Albumin 3.7 g/dL (3.4-4.8); Alkaline Phosphatase 89 U/L (40-150); Bilirubin, Direct 0.1 mg/dL (0.1-0.3); Bilirubin, Total 0.2 mg/dL (0.2-1.2)
[2018-10-31 09:53] LABS: Potassium 7.6 mmol/L (3.5-5.1)
[2018-10-31] MEDS ORDERED: Calcium Gluc 4.6 MEQ/10 ML (100 MG/ML) SLOW IVP ONE (10:03)
[2018-10-31] MEDS ORDERED: Dextrose 50% Abboject 50 ML SYRINGE SLOW IVP SCH (10:15)
[2018-10-31] MEDS ORDERED: Insulin Regular 300 UNITS/3 ML VIAL IVP SCH (10:15)
[2018-10-31] MEDS ORDERED: Sodium Chloride 0.9% 1,000 ML IV SCH (10:30)
[2018-10-31 10:43] LABS: Chloride 104 mmol/L (98-107); Sodium 133 mmol/L (136-145)
[2018-10-31 10:44] LABS: Calcium 9.1 mg/dL (7.8-10.44); Glucose 354 mg/dL (83-110)
[2018-10-31 10:46] LABS: Anion Gap 14 mmol/L (10-20); Carbon Dioxide 23 mmol/L (23-31)
[2018-10-31 10:48] LABS: BUN (Urea Nitrogen) 33 mg/dL (9.8-20.1); Calc. Creatinine Clearance 56 mL/min (70-130); Estimated GFR-MDRD 34
[2018-10-31] MEDS ORDERED: Lidocaine 1% (PF) 30 ML VIAL ONE (11:50)
[2018-10-31] MEDS: Albuterol Sulfate 2.5 mg/3 ml Neb NEB SCH ×2 (12:00→14:10)
[2018-10-31] MEDS ORDERED: Piperacillin/Tazobactam 2.25 GM in Sodium Chloride 0.9% 100 ML IVPB SCH (12:00)
[2018-10-31 12:29] LABS: Anion Gap 14 mmol/L (10-20); BUN (Urea Nitrogen) 34 mg/dL (9.8-20.1); Calc. Creatinine Clearance 56 mL/min (70-130); Calcium 9.4 mg/dL (7.8-10.44); Carbon Dioxide 21 mmol/L (23-31); Chloride 104 mmol/L (98-107); Estimated GFR-MDRD 33; Glucose 373 mg/dL (83-110); Sodium 132 mmol/L (136-145)
[2018-10-31 12:33] LABS: Potassium 6.8 mmol/L (3.5-5.1)
[2018-10-31 13:30] LABS: Bilirubin Negative (Negative); Blood, Urine Negative (Negative); Clarity CLEAR (Clear); Glucose, Urine (Dipstick) 500 mg/dL (Negative); Leukocyte Negative (Negative); Nitrite Negative (Negative); Protein, Urine (Dipstick) Negative (Neg-Trace); Specific Gravity, Urine 1.015 (1.002-1.036); Urobilinogen 0.2 mg/dL (0.2-1.0)
[2018-10-31 13:32] LABS: Urine Culture Reflex No No
[2018-10-31 13:33] LABS: Bacteria/HPF Rare-Few HPF (None Seen); Hyaline Casts/LPF 4-6 HYALINE CAST LPF (0-3 Hyaline); Pathc Cast-AUWi Flag 0.87 (0-2.49); RBC/HPF 0-3 HPF (0-3); Squamous Epithelial 0-3 HPF (0-3)
[2018-10-31] MEDS: ALPRAZolam 1 MG TAB PO PRN ×2 (13:51→23:17)
[2018-10-31] MEDS ORDERED: Piperacillin/Tazobactam 4.5 GM in Sodium Chloride 0.9% 100 ML IVPB SCH (14:00)
[2018-10-31 14:48] LABS: HBSAg Index 0.22 S/CO (0-0.99); Hep B Surf Ag Non-Reactive S/CO (NonReactive)
--- NOTE | 2018-10-31 15:09 | ULT ---
BILATERAL UPPER EXTREMITY VEIN MAPPING: HISTORY: Dialysis access. TECHNIQUE: Multiple longitudinal and transverse images of the right and left upper extremity arteries and veins are obtained using a Multi-Hertz linear array transducer. Real-time and color-flow images are obtain ed. FINDINGS: RIGHT UPPER EXTREMITY RIGHT BRACHIAL ARTERY: 4.7 mm RIGHT RADIAL ARTERY: 2.8 mm RIGHT ULNAR ARTERY: 1.7 mm LEFT UPPER EXTREMITY LEFT BRACHIAL ARTERY: 3.5 mm LEFT RADIAL ARTERY: 2.7 mm LEFT ULNAR ARTERY: 2.3 mm BILATERAL UPPER EXTREMITY VENOUS MEASUREMENTS: RIGHT CEPHALIC BASILIC PROXIMAL HUMERAL 1.5 mm 3.7 mm MID HUMERAL 2.0 mm 3.3 mm DISTAL HUMERAL 2.3 mm 3.3 mm ANTECUBITAL 3.2 mm 3.1 mm PROXIMAL FOREARM 2.2 mm 2.1 mm MID FOREARM 2.1 mm 2.2 mm DISTAL FOREARM 1.7 mm 1.1 mm LEFT CEPHALIC BASILIC PROXIMAL HUMERAL 2.4 mm 2.7 mm MID HUMERAL 2.1 mm 2.6 mm DISTAL HUMERAL 1.3 mm 2.9 mm ANTECUBITAL 1.9 mm 2.4 mm PROXIMAL FOREARM 1.5 mm 1.9 mm MID FOREARM 1.2 mm 1.2 mm DISTAL FOREARM 1.7 mm 1.2 mm IMPRESSION: Right and left upper extremity venous and arterial measurements as described above. POS: [facility]
[2018-10-31] MEDS: Vancomycin HCl 1.75 GM in Sodium Chloride 0.9% 500 ML IVPB SCH ×3 (16:00→16:57)
--- NOTE | 2018-10-31 16:20 | PDOC.PN ---
- Subjective Encounter Start Date: 10/31/18 Encounter Start Time: 16:18 Pt seen for followup re: hyperkalemia. Feels tired. Denies chest pain, shortness of breath, fevers or chills. - Objective Resuscitation Status - Order Detail: 10/28/18 07:51 Resuscitation Status Routine Resuscitation Status: FULL: Full Resuscitation MAR Reviewed: Yes Vital Signs & Weight: Vital Signs (12 hours) Temp Pulse Resp BP Pulse Ox 10/31/18 14:10 84 18 95 10/31/18 12:00 95 10/31/18 11:52 98.3 F 90 18 158/58 H 96 10/31/18 07:47 98.4 F 99 20 105/58 L 94 L 10/31/18 05:13 100.4 F H 115 H 20 130/63 92 L Weight Weight 276 lb I&O: 10/30/18 10/31/18 11/01/18 06:59 06:59 06:59 Intake Total 1660 1470 Balance 1660 1470 Result Diagrams: 10/31/18 05:54 10/31/18 11:51 Additional Labs: Accuchecks 10/31/18 10/31/18 10/31/18 15:40 10:43 05:51 POC Glucose 212 H 385 H 279 H 10/30/18 10/30/18 10/29/18 20:49 17:04 17:56 POC Glucose 123 H 192 H 77 EKG Reviewed by me: Yes (Tele: NSR) Phys Exam - Physical Examination Obese HEENT: moist MMs Neck: supple Respiratory: clear to auscultation bilateral Cardiovascular: RRR Gastrointestinal: soft Neurological: moves all 4 limbs Psychiatric: normal affect Dx/Plan (1) Hyperkalemia Code(s): E87.5 - HYPERKALEMIA Status: Acute Comment: Hyperkalemia developed since yesterday, etiology unclear. Hold spironolactone and Entresto. Nephrology consulted, pt to undergo emergent hemodialysis. (2) Acute worsening of stage 3 chronic kidney disease Code(s): N18.3 - CHRONIC KIDNEY DISEASE, STAGE 3 (MODERATE) Status: Acute Comment: Pt to undergo dialysis (3) Sepsis Code(s): A41.9 - SEPSIS, UNSPECIFIED ORGANISM Status: Suspected Comment: initiate workup. Pt was tachycardic and febrile. Start empiric antibiotics. (4) Diabetes mellitus Code(s): E11.9 - TYPE 2 DIABETES MELLITUS WITHOUT COMPLICATIONS Status: Chronic Qualifiers: Diabetes mellitus type: type 2 Comment: controlled (5) HTN (hypertension) Code(s): I10 - ESSENTIAL (PRIMARY) HYPERTENSION Status: Chronic Qualifiers: Hypertension type: essential hypertension Qualified Code(s): I10 - Essential (primary) hypertension Comment: controlled (6) Headache Code(s): R51 - HEADACHE Status: Resolved Comment: Pt received Brigid protocol. - Plan * . Review of Systems - Review of Systems Respiratory: negative: Cough, Shortness of Breath, SOB with Excertion, Pleuritic Pain, Wheezing Cardiovascular: negative: chest pain, palpitations, orthopnea, paroxysmal nocturnal dyspnea, edema, light headedness - Medications/Allergies Allergies/Adverse Reactions: Allergies Allergy/AdvReac Type Severity Reaction Status Date / Time benzonatate Allergy Verified 10/29/18 23:03 [From Tessalon Perles] ketorolac [From Toradol] Allergy Verified 10/29/18 23:03 Medications: Current Medications Hydrocodone Bitart/Acetaminophen ([place] 10/325) 1 tab PO Q8HR PRN PRN Reason: Pain Last Admin: 10/31/18 01:43 Dose: 1 tab Albuterol Sulfate (Proventil Hfa) 1 puff INH Q4HR PRN PRN Reason: Wheezing Last Admin: 10/30/18 16:00 Dose: 1 puff Alprazolam (Xanax) 1 mg PO BID PRN PRN Reason: Anxiety Last Admin: 10/31/18 13:51 Dose: 1 mg Aspirin (Aspirin) 325 mg PO DAILY [facility] Last Admin: 10/31/18 09:30 Dose: 325 mg Bisacodyl (Dulcolax) 10 mg PO DAILYPRN PRN PRN Reason: CONSTIPATION Last Admin: 10/31/18 09:31 Dose: 10 mg Carvedilol (Coreg) 6.25 mg PO BID [facility] Last Admin: 10/31/18 09:30 Dose: 6.25 mg Clonidine (Catapres) 0.3 mg PO HS [facility] Last Admin: 10/30/18 20:56 Dose: 0.3 mg Dextrose/Water (Dextrose 50%) 25 gm SLOW IVP PRN PRN PRN Reason: Hypoglycemia Docusate Sodium (Colace) 100 mg PO BID PRN PRN Reason: Constipation Last Admin: 10/30/18 15:02 Dose: 100 mg Famotidine (Pepcid) 20 mg PO BID [facility] Last Admin: 10/31/18 09:31 Dose: 20 mg Gabapentin (Neurontin) 300 mg PO TID [facility] Last Admin: 10/31/18 09:30 Dose: 300 mg Glucagon (Glucagon) 1 mg IM PRN PRN PRN Reason: Hypoglycemia Guaifenesin (Mucinex) 600 mg PO Q12HR [facility] Last Admin: 10/31/18 09:30 Dose: 600 mg Heparin Sodium (Porcine) (Heparin) 5,000 units SC TID [facility] Last Admin: 10/31/18 09:31 Dose: 5,000 units Dextrose/Water (D5w) 1,000 mls @ 0 mls/hr IV .Q0M PRN PRN Reason: Hypoglycemia Insulin Glargine 30 units/ (Miscellaneous Medication) 0.3 mls @ 0 mls/hr SC [facility] Last Admin: 10/30/18 20:57 Dose: Not Given Sodium Chloride (Normal Saline 0.9%) 1,000 mls @ 100 mls/hr IV .Q10H [facility] Last Admin: 10/31/18 12:01 Dose: 1,000 mls Vancomycin HCl 1.75 gm/ Sodium (Chloride) 500 mls @ 250 mls/hr IVPB 1600 [facility] Piperacillin Sod/Tazobactam (Sod 2.25 gm/ Sodium Chloride) 100 mls @ 200 mls/ hr IVPB 0500,1100,1700,2300 [facility] Insulin Human Lispro (Humalog) 0 units SC .MILD SLIDING SCALE PRN PRN Reason: Mild Correctional Scale Metformin HCl (Glucophage) 500 mg PO BID-[facility] Last Admin: 10/31/18 09:30 Dose: 500 mg Miscellaneous Medication (Pharmacy To Dose) 1 each IVPB ASDIR [facility] Nitroglycerin (Nitrostat) 0.4 mg SL Q5MIN PRN PRN Reason: Chest Pain Sodium Chloride (Flush - Normal Saline) 10 ml IVF Q12HR [facility] Sodium Chloride (Flush - Normal Saline) 10 ml IVF PRN PRN PRN Reason: Saline Flush Temazepam (Restoril) 15 mg PO HS PRN PRN Reason: Anxiety/Insomnia Last Admin: 10/29/18 21:25 Dose: 15 mg
[2018-10-31] MEDS: Piperacillin/Tazobactam 2.25 GM in Sodium Chloride 0.9% 100 ML IVPB SCH ×2 (16:56→23:18)
[2018-10-31] MEDS ORDERED: Ondansetron PF 4 MG/2 ML Vial SLOW IVP PRN (17:55)
[2018-10-31] MEDS ORDERED: HYDROcodone/Acetaminophen 10/325 mg Tablet PO SCH (18:45)
[2018-10-31 19:29] LABS: Potassium 4.3 mmol/L (3.5-5.1)
--- NOTE | 2018-10-31 19:38 | CON ---
DATE OF CONSULTATION: 10/31/2018 CONSULTING PHYSICIAN: Dr. Bacon. REASON FOR CONSULTATION: Severe hyperkalemia. REASON FOR ADMISSION: Chest pain. HISTORY OF PRESENT ILLNESS: A 73-year-old female with history of CHF, COPD, type 2 diabetes, hypertension, anemia, and glaucoma, came to the hospital with chest pain and was found to have elevated potassium throughout this morning. She had a potassium of 6 this morning and repeat potassium was 7.6. Her EKG did not show any signs, and she does have pacemaker and defibrillator. She had a fever earlier and no chest pain reported to me and she does have mild shortness of breath. PAST MEDICAL HISTORY: Positive for, 1. CHF. 2. COPD. 3. Type 2 diabetes. 4. Hypertension. 5. Lung cancer. 6. CKD. 7. Chronic anemia. 8. Tobacco dependence. 9. Obstructive sleep apnea. 10. Glaucoma. 11. DVT. 12. Anxiety and depression. 13. Colon cancer. 14. Ventral hernia. PAST SURGICAL HISTORY: 1. Colon cancer. 2. Appendectomy. 3. Cholecystectomy. 4. Hernia repair. 5. Tonsillectomy. 6. Colectomy. HOME MEDICATIONS: Include, 1. Zanaflex. 2. Florastor. 3. MiraLAX. 4. Fish oil. 5. Lipitor. 6. Coreg. 7. Zantac. 8. Entresto. 9. Aldactone. 10. Glucophage. 11. Nitrostat. 12. Lantus. 13. Mucinex. 14. Hydrocodone. 15. . 16. Aspirin. 17. Alprazolam. 18. Albuterol. ALLERGIES: TO BENZONATATE, KETOROLAC. SOCIAL HISTORY: No smoking, alcohol, or illicit drugs. FAMILY HISTORY: No history of any kidney disease. REVIEW OF SYSTEMS: CONSTITUTIONAL: Negative for weight loss or gain, ability to conduct usual activities. SKIN: Negative for rash, itching. EYES: Negative for double vision, pain. ENT/MOUTH: Negative for nose bleeding, neck stiffness, pain, tenderness. CARDIOVASCULAR: Negative for palpitations, dyspnea on exertion, orthopnea. RESPIRATORY: Negative for shortness of breath, wheezing, cough, hemoptysis, fever or night sweats. GASTROINTESTINAL: Negative for poor appetite, abdominal pain, heartburn, nausea, vomiting, constipation, or diarrhea. GENITOURINARY: Negative for urgency, frequency, dysuria, nocturia. MUSCULOSKELETAL: Negative for pain, swelling. NEUROLOGIC/PSYCHIATRIC: Negative for anxiety, depression. ALLERGY/IMMUNOLOGIC: Negative for skin rash, bleeding tendency. PHYSICAL EXAMINATION: GENERAL: This is an obese female, in no apparent distress. VITAL SIGNS: Temperature 98.4, pulse 90, respiratory rate 20, blood pressure 105/58. HEENT: Atraumatic and normocephalic. Oral mucosa is moist. NECK: Supple. CARDIOVASCULAR: S1 and S2 heard. Rate and rhythm regular. RESPIRATORY: Clear. GASTROINTESTINAL: Abdomen is soft. MUSCULOSKELETAL: No tenderness. No edema. DERMATOLOGIC: No skin rash. NEUROLOGIC: Alert and awake and oriented X3. No focal neurologic deficits. Moving all the extremities. PSYCHIATRIC: Mood and affect normal. LABORATORY DATA: Potassium is 7.6, BUN is 33, and creatinine is 1.7. ASSESSMENT AND PLAN: 1. Acute kidney injury. Will have hydration. 2. Severe hyperkalemia. EKG is unremarkable. We will repeat potassium, and if it is elevated, we will have dialysis. 3. Anemia. 4. Edema, controlled. 5. Hypertension. Repeat potassium. If it is elevated, plan is to have dialysis. Continue medical treatment. Monitor closely. Job ID: [id number]
[2018-10-31] MEDS: cloNIDine 0.3 MG TAB PO SCH (21:09)
[2018-10-31] MEDS: Insulin Glargine 30 UNITS in Pre-Filled Syringe SC SCH (21:10)
[2018-10-31] MEDS ORDERED: HumaLOG 300 UNITS/3 ML VIAL SC PRN (23:57)
[2018-11-01] MEDS: Piperacillin/Tazobactam 2.25 GM in Sodium Chloride 0.9% 100 ML IVPB SCH ×4 (04:48→23:23)
--- NOTE | 2018-11-01 08:54 | OP ---
DATE OF PROCEDURE: 10/31/2018 PREOPERATIVE DIAGNOSES: Morbid obesity, hyperkalemia, chronic kidney disease, in need of acute dialysis for hyperkalemia. POSTOPERATIVE DIAGNOSES: Morbid obesity, hyperkalemia, chronic kidney disease, in need of acute dialysis for hyperkalemia. PROCEDURE PERFORMED: Right femoral vein Trialysis catheter. ANESTHESIA: 1% Xylocaine. DESCRIPTION OF PROCEDURE: I was asked by the hospitalist to place a hemodialysis catheter 2 hours prior to arriving to the patient's room to place it. I had called the nursing to ask to have things and supplies ready. Nurses did have supplies ready. When I entered the room to place hemodialysis catheter, the patient was morbidly obese with a large pannus and the right groin was prepared with ChloraPrep. The daughter entered the room and stated the patient was anxious and needed anxiolytics prior to the procedure and stated that we were rushing the procedure. The patient also at that time informed me that she had snuff in her mouth and she wanted to spit it out and proceeded to sit up. I informed the patient that I had a sterile field and that she could not sit up and to please keep her hands over her chest. While maintaining a sterile field, we accommodated the patient and after spitting stuff and rinsing her mouth 4 times and then taking her Xanax, we proceeded with her dialysis catheter. I did inform the daughter who seemed very agitated and accusational that if they wanted another doctor, I could stop the procedure and then the daughter began to apologize stating that she was very anxious also and wanted me to proceed with the procedure. Right groin was prepared with ChloraPrep, draped in routine fashion. 1% xylocaine was infiltrated in the skin and subcutaneous tissue. Saline technique was used to place a Trialysis catheter, removed the J-wire, secured the catheter with 3-0 nylon. Sterile dressing was applied. Each port aspirated for blood, flushed with heparin saline solution. The patient tolerated the procedure well. Job ID: [id number]
[2018-11-01] MEDS: Gabapentin 300 MG CAP PO SCH ×3 (08:57→20:20)
[2018-11-01] MEDS: guaiFENesin ER 600 MG TAB PO SCH ×2 (08:57→20:20)
[2018-11-01] MEDS: metFORMIN 500 MG TAB PO SCH ×2 (08:57→16:50)
[2018-11-01] MEDS: Famotidine 20 MG TAB PO SCH ×2 (08:57→20:21)
[2018-11-01] MEDS: Aspirin 325 MG TAB PO SCH (08:57)
[2018-11-01] MEDS: Heparin 5,000 UNITS/ML VIAL SC SCH ×3 (08:58→20:32)
[2018-11-01] MEDS: Carvedilol 6.25 MG TAB PO SCH ×2 (08:59→20:24)
[2018-11-01 10:58] LABS: Anion Gap 11 mmol/L (10-20); BUN (Urea Nitrogen) 26 mg/dL (9.8-20.1); Calc. Creatinine Clearance 53 mL/min (70-130); Calcium 8.3 mg/dL (7.8-10.44); Carbon Dioxide 30 mmol/L (23-31); Chloride 100 mmol/L (98-107); Estimated GFR-MDRD 31; Glucose 161 mg/dL (83-110); Potassium 5.1 mmol/L (3.5-5.1); Sodium 136 mmol/L (136-145)
--- NOTE | 2018-11-01 14:27 | PQF ---
CLINICAL DOCUMENTATION IMPROVEMENT CLARIFICATION FORM: ICD-10 Updated PLEASE DO AN ADDENDUM TO THE PROGRESS NOTE WITH ANY DOCUMENTATION UPDATES OR ADDITIONS AND CARRY THROUGH TO DC SUMMARY. THANK YOU. DATE: 11/01/18 ATTN : DR. HENRY Please exercise your independent, professional judgment in responding to the clarification form. Clinical indicators are provided on the bottom of this form for your review Please check appropriate box(s) to clarify if the following diagnosis has been ruled in or ruled out: SEPSIS [ ] Ruled in diagnosis [ ] Continue to treat [ ] Resolved [ ] Ruled out diagnosis [ ] Cannot rule out diagnosis [ ] Other diagnosis [ ] Unable to determine In addition, please specify: Present on Admission (POA): [ ] Yes [ ] No [ ] Unable to determine For continuity of documentation, please document condition throughout progress notes and discharge summary. Thank You. CLINICAL INDICATORS - SIGNS / SYMPTOMS / LABS 10/31 PROGRESS NOTE: "SEPSIS, SUSPECTED" TEMP 100.4 (10/31) PULSE 115 BP 95/55 / 90/51 (11/01) RISKS: DIABETES COPD CHF TREATMENT: BLOOD CULTURES URINE CULTURES SERIAL LABS IV ZOSYN (10/31-PRESENT) IV VANCOMYCIN (10/31-PRESENT) SAP Tread Builder [employer] Winform Viewer(This form is maintained as a part of the permanent medical record) 2014 [employer]. All Rights Reserved RUY [email or web address] Office: [phone] ROSANA
[2018-11-01] MEDS: Vancomycin HCl 1.75 GM in Sodium Chloride 0.9% 500 ML IVPB SCH (14:57)
--- NOTE | 2018-11-01 14:58 | PDOC.PN ---
- Subjective Encounter Start Date: 11/01/18 Encounter Start Time: 14:56 Subjective: Seen and examined -feeling tired - Objective Resuscitation Status - Order Detail: 10/28/18 07:51 Resuscitation Status Routine Resuscitation Status: FULL: Full Resuscitation Vital Signs & Weight: Vital Signs (12 hours) Temp Pulse Resp BP BP BP Pulse Ox 11/01/18 11:48 97.4 F L 70 20 90/51 L 93 L 11/01/18 08:59 95/55 L 11/01/18 07:40 97.4 F L 70 24 H 95/55 L 95 11/01/18 04:42 97.4 F L 84 16 93/48 L 97 Weight Weight 276 lb I&O: 10/31/18 11/01/18 11/02/18 06:59 06:59 06:59 Intake Total 1470 1750 Balance 1470 1750 Result Diagrams: 10/31/18 05:54 11/01/18 10:23 Additional Labs: Accuchecks 11/01/18 11/01/18 10/31/18 10:47 05:31 23:45 POC Glucose 173 H 214 H 364 H 10/31/18 10/31/18 20:43 15:40 POC Glucose 237 H 212 H Phys Exam - Physical Examination Constitutional: NAD HEENT: PERRLA, moist MMs, sclera anicteric, TM's clear Neck: no nodes, no JVD, supple, full ROM Respiratory: no wheezing, no rales, no rhonchi, clear to auscultation bilateral Cardiovascular: RRR, no significant murmur, no rub Gastrointestinal: soft, non-tender, no distention, positive bowel sounds Musculoskeletal: no edema, pulses present Dx/Plan (1) Bacteremia Code(s): R78.81 - BACTEREMIA Status: Acute (2) Acute worsening of stage 3 chronic kidney disease Code(s): N18.3 - CHRONIC KIDNEY DISEASE, STAGE 3 (MODERATE) Status: Acute Comment: Pt to undergo dialysis (3) Hyperkalemia Code(s): E87.5 - HYPERKALEMIA Status: Acute Comment: Hyperkalemia developed since yesterday, etiology unclear. Hold spironolactone and Entresto. Nephrology consulted, pt to undergo emergent hemodialysis. (4) CKD stage 3 secondary to diabetes Code(s): E11.22 - TYPE 2 DIABETES MELLITUS W DIABETIC CHRONIC KIDNEY DISEASE; N18.3 - CHRONIC KIDNEY DISEASE, STAGE 3 (MODERATE) Status: Chronic Comment: controlled (5) Sepsis Code(s): A41.9 - SEPSIS, UNSPECIFIED ORGANISM Status: Suspected Comment: initiate workup. Pt was tachycardic and febrile. Start empiric antibiotics. (6) Headache Code(s): R51 - HEADACHE Status: Resolved Comment: Pt received Brigid protocol. (7) VERA (acute kidney injury) Code(s): N17.9 - ACUTE KIDNEY FAILURE, UNSPECIFIED Status: Acute Comment: kidney function better. Mostlikely VERA + ckd. (8) Acute and chronic respiratory failure with hypoxia Code(s): J96.21 - ACUTE AND CHRONIC RESPIRATORY FAILURE WITH HYPOXIA Status: Acute (9) CKD (chronic kidney disease) Code(s): N18.9 - CHRONIC KIDNEY DISEASE, UNSPECIFIED Status: Acute - Plan plan discussed w/ family, continue antibiotics, PT/OT, social and human services assistant Hold Metformin -: Hold aldactone and valsartan -: Probably doesnt need dialysis anymore--defer to Renal -: If no more dialysis D/c femoral catheter * .
[2018-11-01] MEDS: Insulin Glargine 30 UNITS in Pre-Filled Syringe SC SCH (20:32)
--- NOTE | 2018-11-01 20:40 | PRG ---
DATE OF SERVICE: 11/01/2018 SUBJECTIVE: Patient was seen and examined at bedside and overnight events noted. Patient denies any shortness of breath or chest pain or palpitation. No history of nausea or vomiting or diarrhea or fever or chills or cramps. OBJECTIVE: GENERAL: This is an elderly female, in no apparent distress. VITAL SIGNS: Temperature 97.5, pulse 80, respiratory rate 20, blood pressure 116/56. HEENT: Atraumatic, normocephalic. Oral mucosa is moist NECK: Supple. CARDIOVASCULAR: S1, S2 heard. Rate and rhythm regular. RESPIRATORY: Clear to auscultation. GASTROINTESTINAL: Abdomen is soft. MUSCULOSKELETAL: No tenderness. No edema. DERMATOLOGIC: No skin rash. NEUROLOGIC: Alert and awake and oriented X3. No focal neurologic deficits. Moving all the extremities. PSYCHIATRIC: Mood and affect normal. LABORATORY DATA: Potassium is 5.1, BUN is 26, creatinine 1.9. ASSESSMENT AND PLAN: 1. Acute kidney injury. Avoid nephrotoxins. 2. Severe hyperkalemia. we will monitor one more day. Potassium remains stable. at this time. 3. We will continue to monitor closely. Avoid nephrotoxins. Continue to hold aldactone and valsartan. Job ID: [id number]
[2018-11-01] MEDS: ALPRAZolam 1 MG TAB PO PRN (23:22)
[2018-11-01] MEDS: cloNIDine 0.3 MG TAB PO SCH (23:23)
[2018-11-01] MEDS: HYDROcodone/Acetaminophen 10/325 mg Tablet PO PRN (23:23)
[2018-11-02 05:17] LABS: Anion Gap 11 mmol/L (10-20); BUN (Urea Nitrogen) 32 mg/dL (9.8-20.1); Calc. Creatinine Clearance 52 mL/min (70-130); Calcium 8.4 mg/dL (7.8-10.44); Carbon Dioxide 29 mmol/L (23-31); Chloride 101 mmol/L (98-107); Estimated GFR-MDRD 31; Glucose 169 mg/dL (83-110); Potassium 4.9 mmol/L (3.5-5.1); Sodium 136 mmol/L (136-145)
[2018-11-02] MEDS: Piperacillin/Tazobactam 2.25 GM in Sodium Chloride 0.9% 100 ML IVPB SCH ×4 (05:33→21:06)
[2018-11-02] MEDS: metFORMIN 500 MG TAB PO SCH (07:21)
[2018-11-02] MEDS: Famotidine 20 MG TAB PO SCH ×2 (09:04→21:08)
[2018-11-02] MEDS: Heparin 5,000 UNITS/ML VIAL SC SCH (09:05)
[2018-11-02] MEDS: Carvedilol 6.25 MG TAB PO SCH ×2 (09:05→21:08)
[2018-11-02] MEDS: guaiFENesin ER 600 MG TAB PO SCH ×2 (09:05→21:07)
[2018-11-02] MEDS: Docusate 100 MG CAP PO PRN (09:05)
[2018-11-02] MEDS: Gabapentin 300 MG CAP PO SCH ×2 (09:05→21:07)
[2018-11-02] MEDS: Aspirin 325 MG TAB PO SCH (09:05)
--- NOTE | 2018-11-02 09:08 | PDOC.PN ---
- Subjective Encounter Start Date: 11/02/18 Encounter Start Time: 09:07 Subjective: seen and examined-very somnolent - Objective Resuscitation Status - Order Detail: 10/28/18 07:51 Resuscitation Status Routine Resuscitation Status: FULL: Full Resuscitation Vital Signs & Weight: Vital Signs (12 hours) Temp Pulse Resp BP BP BP Pulse Ox 11/02/18 09:05 118/53 L 11/02/18 08:00 99.8 F H 98 16 120/56 L 94 L 11/02/18 07:47 95 11/02/18 06:20 99.3 F 91 18 144/56 H 94 L 11/02/18 04:41 99.5 F 90 16 125/58 L 95 11/01/18 23:23 118/53 L 11/01/18 23:19 98.1 F 64 16 95/47 L 94 L Weight Weight 276 lb I&O: 11/01/18 11/02/18 11/03/18 06:59 06:59 06:59 Intake Total 1750 510 Balance 1750 510 Result Diagrams: 10/31/18 05:54 11/02/18 04:36 Additional Labs: Accuchecks 11/02/18 11/02/18 11/01/18 06:12 04:38 20:32 POC Glucose 154 H 79 152 H 11/01/18 11/01/18 16:29 10:47 POC Glucose 131 H 173 H Phys Exam - Physical Examination Constitutional: NAD HEENT: PERRLA, moist MMs, sclera anicteric, TM's clear, oral pharynx no lesions Neck: no nodes, no JVD, supple, full ROM Respiratory: no wheezing, no rales, no rhonchi, clear to auscultation bilateral Cardiovascular: RRR, no significant murmur, no rub Gastrointestinal: soft, non-tender, no distention, positive bowel sounds Musculoskeletal: no edema, pulses present Neurological: non-focal, normal sensation, moves all 4 limbs somnolent Lymphatic: no nodes Dx/Plan (1) Bacteremia Code(s): R78.81 - BACTEREMIA Status: Acute (2) Acute worsening of stage 3 chronic kidney disease Code(s): N18.3 - CHRONIC KIDNEY DISEASE, STAGE 3 (MODERATE) Status: Acute Comment: Pt to undergo dialysis (3) Hyperkalemia Code(s): E87.5 - HYPERKALEMIA Status: Acute Comment: Hyperkalemia developed since yesterday, etiology unclear. Hold spironolactone and Entresto. Nephrology consulted, pt to undergo emergent hemodialysis. (4) CKD stage 3 secondary to diabetes Code(s): E11.22 - TYPE 2 DIABETES MELLITUS W DIABETIC CHRONIC KIDNEY DISEASE; N18.3 - CHRONIC KIDNEY DISEASE, STAGE 3 (MODERATE) Status: Chronic Comment: controlled (5) Sepsis Code(s): A41.9 - SEPSIS, UNSPECIFIED ORGANISM Status: Suspected Comment: initiate workup. Pt was tachycardic and febrile. Start empiric antibiotics. (6) Headache Code(s): R51 - HEADACHE Status: Resolved Comment: Pt received Brigid protocol. (7) VERA (acute kidney injury) Code(s): N17.9 - ACUTE KIDNEY FAILURE, UNSPECIFIED Status: Acute Comment: kidney function better. Mostlikely VERA + ckd. (8) Acute and chronic respiratory failure with hypoxia Code(s): J96.21 - ACUTE AND CHRONIC RESPIRATORY FAILURE WITH HYPOXIA Status: Acute (9) CKD (chronic kidney disease) Code(s): N18.9 - CHRONIC KIDNEY DISEASE, UNSPECIFIED Status: Acute (10) Somnolence Code(s): R40.0 - SOMNOLENCE Status: Acute (11) Sleep apnea Code(s): G47.30 - SLEEP APNEA, UNSPECIFIED Status: Acute (12) CO2 narcosis Code(s): R06.89 - OTHER ABNORMALITIES OF BREATHING Status: Acute - Plan plan discussed w/ family, continue antibiotics, PT/OT, pediatric social worker, respiratory therapy ABG -: Dialysis no longer needed will d/c femoral line as pt is blood culture +ve -: Hold all sedatives * .
[2018-11-02 10:35] LABS: Actual Bicarbonate (HCO3a) 30.6 mEq/L (22-28); Base Excess (BEa) 2.7 mEq/L (-2.0 to +3.0); Calcium, Ionized 1.21 mmol/L (1.12-1.30); Hemoglobin (Hb) 10.7 g/dL (12.0-16.0); O2 Tension (PaO2) 83.9 mmHg (> 70.0); pH, Arterial 7.29 (7.35-7.45)
[2018-11-02 10:43] LABS: CO2 Tension 65.3 mmHg (35.0-45.0); Puncture Site LR
[2018-11-02] MEDS ORDERED: Sodium Chloride 0.9% 500 ML IV SCH (10:45)
--- NOTE | 2018-11-02 11:53 | PRG ---
DATE OF SERVICE: 11/02/2018 SUBJECTIVE: Patient was seen and examined at bedside and overnight events noted. Patient denies any shortness of breath or chest pain or palpitation. No history of nausea or vomiting or diarrhea or fever or chills or cramps. OBJECTIVE: GENERAL: This is an obese female, in no apparent distress. VITAL SIGNS: Temperature . HEENT: Atraumatic, normocephalic. Oral mucosa is moist NECK: Supple. CARDIOVASCULAR: S1, S2 heard. Rate and rhythm regular. RESPIRATORY: Clear to auscultation. GASTROINTESTINAL: Abdomen is soft. MUSCULOSKELETAL: No tenderness. No edema. DERMATOLOGIC: No skin rash. NEUROLOGIC: Alert and awake and oriented X3. No focal neurologic deficits. Moving all the extremities. PSYCHIATRIC: Mood and affect normal. LABORATORY DATA: Potassium is 4.9, BUN is 32, creatinine is 1.9. ASSESSMENT AND PLAN: 1. Acute kidney injury, stable. Family reports low urine output. . 2. Severe hyperkalemia was better after dialysis. We will remove dialysis catheter. 3. Edema, controlled. 4. Hypertension stable. 5. Altered mentation per primary team. 6. Avoid nephrotoxins. Hydration if tolerated. We will follow. Job ID: [id number]
[2018-11-02] MEDS: PROVENTIL INHALER 6.7 G (200 INHALATIONS) INH PRN (14:48)
[2018-11-02] MEDS: Vancomycin HCl 1.75 GM in Sodium Chloride 0.9% 500 ML IVPB SCH (15:12)
[2018-11-02 16:25] LABS: Vancomycin, Trough 13.4 ug/mL
[2018-11-02] MEDS: cloNIDine 0.3 MG TAB PO SCH (21:06)
[2018-11-02] MEDS: Insulin Glargine 30 UNITS in Pre-Filled Syringe SC SCH (21:06)
[2018-11-02] MEDS: HYDROcodone/Acetaminophen 10/325 mg Tablet PO PRN (23:21)
[2018-11-03] MEDS: Piperacillin/Tazobactam 2.25 GM in Sodium Chloride 0.9% 100 ML IVPB SCH ×3 (02:53→20:56)
[2018-11-03 05:35] LABS: Anion Gap 12 mmol/L (10-20); BUN (Urea Nitrogen) 26 mg/dL (9.8-20.1); Calc. Creatinine Clearance 74 mL/min (70-130); Calcium 9.2 mg/dL (7.8-10.44); Carbon Dioxide 27 mmol/L (23-31); Chloride 105 mmol/L (98-107); Estimated GFR-MDRD 45; Glucose 118 mg/dL (83-110); Potassium 4.4 mmol/L (3.5-5.1); Sodium 140 mmol/L (136-145)
[2018-11-03] MEDS: HYDROcodone/Acetaminophen 10/325 mg Tablet PO PRN ×2 (09:33→16:59)
[2018-11-03] MEDS: Aspirin 325 MG TAB PO SCH (09:33)
[2018-11-03] MEDS: Carvedilol 6.25 MG TAB PO SCH ×2 (09:33→21:52)
[2018-11-03] MEDS: guaiFENesin ER 600 MG TAB PO SCH ×2 (09:33→21:52)
[2018-11-03] MEDS: Gabapentin 300 MG CAP PO SCH ×2 (09:33→21:51)
[2018-11-03] MEDS: Famotidine 20 MG TAB PO SCH ×2 (09:34→21:51)
--- NOTE | 2018-11-03 13:22 | CON ---
DATE OF CONSULTATION: 11/03/2018 CONSULTING PHYSICIAN: Didiist . REASON FOR CONSULTATION: IMC placement. HISTORY OF PRESENT ILLNESS: This patient is a 73-year-old female, who was hospitalized on 10/28/2018 with chest pain and palpitations. Yesterday, she was noted to have hypercapnia after being sleepy. She was sent over and briefly did BiPAP and improved and has been off that this morning. She is now awake and alert. Has no complaints. PAST MEDICAL HISTORY: 1. Chronic systolic and diastolic heart failure. 2. Chronic obstructive pulmonary disease. 3. Diabetes mellitus type 2. 4. Hypertension. 5. She states she has had a negative sleep study in the past. 6. Lung cancer requiring radiation therapy. 7. Chronic kidney disease. 8. Anemia. 9. Upper extremity DVT. 10. Bipolar disorder. 11. Colon cancer. 12. Ventral hernia. PAST SURGICAL HISTORY: 1. Colon cancer surgery. 2. Appendectomy. 3. Cholecystectomy. 4. Hernia repair. 5. Tonsillectomy. 6. Colectomy. ALLERGIES: . SOCIAL HISTORY: Used to smoke, but quit 20 years ago. Does not drink alcohol. Does not use illicit drugs. FAMILY MEDICAL HISTORY: Unremarkable. MEDICATIONS: Reviewed. See medication section in the chart. REVIEW OF SYSTEMS: Twelve-point review of systems is otherwise negative. PHYSICAL EXAMINATION: VITAL SIGNS: Temperature 98.4, pulse 101, respirations 20, O2 saturation 100%, and blood pressure 145/86. GENERAL: She is awake and alert, in no distress. HEENT: Unremarkable. NECK: No adenopathy. No JVD. No bruits. LUNGS: Clear without wheezing or rhonchi. CARDIAC: S1 and S2. Regular without murmur. ABDOMEN: Soft. EXTREMITIES: No edema. LABORATORY DATA: White blood cell count 6.8, hematocrit 35, and platelet count 169. Sodium 140, potassium 4.4, chloride 105, CO2 of 27, BUN 26, creatinine 1.4, and glucose 118. ASSESSMENT: 1. Hypercapnia that is symptomatically resolved. 2. History of chronic obstructive pulmonary disease. 3. Multiple other medical problems as listed above. PLAN: She seems suitable for transfer out to the floor. Her respiratory issues appear to be back at baseline. Nothing further to add to the current treatment. Job ID: [id number]
--- NOTE | 2018-11-03 15:21 | PDOC.PN ---
- Subjective Encounter Start Date: 11/03/18 Encounter Start Time: 07:45 Subjective: awake, off bipap whole night and now -: no sob, feels better - Objective Resuscitation Status - Order Detail: 10/28/18 07:51 Resuscitation Status Routine Resuscitation Status: FULL: Full Resuscitation MAR Reviewed: Yes Vital Signs & Weight: Vital Signs (12 hours) Temp Pulse Resp BP BP Pulse Ox 11/03/18 11:27 98.4 F 101 H 20 145/86 H 100 11/03/18 09:33 156/75 H 11/03/18 08:00 97.9 F 83 19 127/65 97 11/03/18 04:00 98.4 F 92 18 122/65 99 Weight Weight 281 lb 4 oz I&O: 11/02/18 11/03/18 11/04/18 06:59 06:59 06:59 Intake Total 510 1090 Output Total 2150 Balance 510 -1060 Result Diagrams: 10/31/18 05:54 11/03/18 04:50 Additional Labs: Accuchecks 11/03/18 11/03/18 11/02/18 09:56 06:02 20:14 POC Glucose 217 H 105 174 H 11/02/18 16:22 POC Glucose 101 Phys Exam - Physical Examination HEENT: PERRLA, moist MMs Neck: no JVD, supple Respiratory: no wheezing, no rales Cardiovascular: RRR, no significant murmur Gastrointestinal: soft, non-tender, positive bowel sounds Musculoskeletal: no edema, pulses present Neurological: non-focal, moves all 4 limbs Psychiatric: normal affect, A&O x 3 Dx/Plan (1) Migraine Code(s): G43.909 - MIGRAINE, UNSP, NOT INTRACTABLE, WITHOUT STATUS MIGRAINOSUS Status: Acute Qualifiers: Migraine type: without aura Intractability: intractable Comment: resolving (2) Acute worsening of stage 3 chronic kidney disease Code(s): N18.3 - CHRONIC KIDNEY DISEASE, STAGE 3 (MODERATE) Status: Acute (3) Sleep apnea Code(s): G47.30 - SLEEP APNEA, UNSPECIFIED Status: Suspected Comment: prior sleep study in 2017 was -ve at [facility] per family (4) Acute and chronic respiratory failure with hypoxia Code(s): J96.21 - ACUTE AND CHRONIC RESPIRATORY FAILURE WITH HYPOXIA Status: Resolved (5) Anemia Code(s): D64.9 - ANEMIA, UNSPECIFIED Status: Chronic Qualifiers: Chronic kidney disease stage: stage 2 (mild) (6) Diabetes mellitus Code(s): E11.9 - TYPE 2 DIABETES MELLITUS WITHOUT COMPLICATIONS Status: Chronic Qualifiers: Diabetes mellitus type: type 2 Diabetes mellitus 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 insulin use: with nursing home use Diabetes mellitus complication status: with kidney complications Diabetes mellitus complication detail: with chronic kidney disease Chronic kidney disease stage: stage 3 (moderate) Qualified Code(s): E11.22 - Type 2 diabetes mellitus with diabetic chronic kidney disease; N18.3 - Chronic kidney disease, stage 3 (moderate); Z79.4 - [facility] (current) use of insulin Comment: controlled (7) HTN (hypertension) Code(s): I10 - ESSENTIAL (PRIMARY) HYPERTENSION Status: Chronic Qualifiers: Hypertension type: essential hypertension Qualified Code(s): I10 - Essential (primary) hypertension Comment: controlled (8) Hx of cancer of lung Code(s): Z85.118 - PERSONAL HISTORY OF MALIGNANT NEOPLASM OF BRONCHUS AND LUNG Status: Chronic (9) Morbid obesity Code(s): E66.01 - MORBID (SEVERE) OBESITY DUE TO EXCESS CALORIES Status: Chronic (10) CHF (congestive heart failure), NYHA class III Code(s): I50.9 - HEART FAILURE, UNSPECIFIED Status: Chronic Qualifiers: Congestive heart failure type: combined Comment: ef of 20% - Plan hemostable -: is on asp, coreg, lantus -: will dc antibiotics -: d/w family that she will need a repeat sleep study to r/o sleep apnea -: may dc home if she ambulates with rw if not will need rehab/swing bed * . Review of Systems - Medications/Allergies Allergies/Adverse Reactions: Allergies Allergy/AdvReac Type Severity Reaction Status Date / Time benzonatate Allergy Verified 10/29/18 23:03 [From Tessalon Perles] ketorolac [From Toradol] Allergy Verified 10/29/18 23:03 Medications: Current Medications Hydrocodone Bitart/Acetaminophen ([place] 10/325) 1 tab PO Q8HR PRN PRN Reason: Pain Last Admin: 11/03/18 09:33 Dose: 1 tab Albuterol Sulfate (Proventil Hfa) 1 puff INH Q4HR PRN PRN Reason: Wheezing Last Admin: 11/02/18 14:48 Dose: 1 puff Aspirin (Aspirin) 325 mg PO DAILY [facility] Last Admin: 11/03/18 09:33 Dose: 325 mg Bisacodyl (Dulcolax) 10 mg PO DAILYPRN PRN PRN Reason: CONSTIPATION Last Admin: 10/31/18 09:31 Dose: 10 mg Carvedilol (Coreg) 6.25 mg PO BID [facility] Last Admin: 11/03/18 09:33 Dose: 6.25 mg Clonidine (Catapres) 0.3 mg PO [facility] Last Admin: 11/02/18 21:06 Dose: 0.3 mg Dextrose/Water (Dextrose 50%) 25 gm SLOW IVP PRN PRN PRN Reason: Hypoglycemia Docusate Sodium (Colace) 100 mg PO BID PRN PRN Reason: Constipation Last Admin: 11/02/18 09:05 Dose: 100 mg Famotidine (Pepcid) 20 mg PO BID [facility] Last Admin: 11/03/18 09:34 Dose: 20 mg Gabapentin (Neurontin) 300 mg PO BID [facility] Last Admin: 11/03/18 09:33 Dose: 300 mg Glucagon (Glucagon) 1 mg IM PRN PRN PRN Reason: Hypoglycemia Guaifenesin (Mucinex) 600 mg PO Q12HR [facility] Last Admin: 11/03/18 09:33 Dose: 600 mg Dextrose/Water (D5w) 1,000 mls @ 0 mls/hr IV .Q0M PRN PRN Reason: Hypoglycemia Insulin Glargine 30 units/ (Miscellaneous Medication) 0.3 mls @ 0 mls/hr SC [facility] Last Admin: 11/02/18 21:06 Dose: 0.3 mls Vancomycin HCl 1.75 gm/ Sodium (Chloride) 500 mls @ 250 mls/hr IVPB 1600 [facility] Last Admin: 11/02/18 15:12 Dose: 500 mls Piperacillin Sod/Tazobactam (Sod 2.25 gm/ Sodium Chloride) 100 mls @ 200 mls/ hr IVPB 0300,0900,1500,2100 [facility] Last Admin: 11/03/18 09:32 Dose: 100 mls Insulin Human Lispro (Humalog) 0 units SC .MILD SLIDING SCALE PRN PRN Reason: Mild Correctional Scale Last Admin: 11/01/18 06:10 Dose: 3 unit Insulin Human Lispro (Humalog) 0 units SC .BEDTIME SLIDING SC PRN; Protocol PRN Reason: BEDTIME SLIDING SCALE Miscellaneous Medication (Pharmacy To Dose) 1 each IVPB ASDIR [facility] Nitroglycerin (Nitrostat) 0.4 mg SL Q5MIN PRN PRN Reason: Chest Pain Ondansetron HCl (Zofran) 4 mg SLOW IVP Q6H PRN PRN Reason: Nausea/Vomiting Last Admin: 10/31/18 18:06 Dose: 4 mg Sodium Chloride (Flush - Normal Saline) 10 ml IVF Q12HR [facility] Last Admin: 11/03/18 09:35 Dose: 10 ml Sodium Chloride (Flush - Normal Saline) 10 ml IVF PRN PRN PRN Reason: Saline Flush Last Admin: 11/03/18 09:35 Dose: 10 ml
[2018-11-03 15:34] LABS: Vancomycin, Trough 17.1 ug/mL
--- NOTE | 2018-11-03 15:35 | PRG ---
DATE OF SERVICE: 11/03/2018 SUBJECTIVE: Patient was seen and examined at bedside and overnight events noted. Patient denies any shortness of breath or chest pain or palpitation. No history of nausea or vomiting or diarrhea or fever or chills or cramps. OBJECTIVE: GENERAL: This is an elderly female, in no acute distress. VITAL SIGNS: Temperature 98.4, pulse 101, respiratory rate 20, blood pressure 145/86. HEENT: Atraumatic, normocephalic. Oral mucosa is moist NECK: Supple. CARDIOVASCULAR: S1, S2 heard. Rate and rhythm regular. RESPIRATORY: Clear to auscultation. GASTROINTESTINAL: Abdomen is soft. MUSCULOSKELETAL: No tenderness. No edema. DERMATOLOGIC: No skin rash. NEUROLOGIC: Alert and awake and oriented X3. No focal neurologic deficits. Moving all the extremities. PSYCHIATRIC: Mood and affect normal. LABORATORY DATA: Potassium 4.4, BUN is 26, creatinine is 1.3. ASSESSMENT AND PLAN: 1. Acute kidney injury, stable. 2. Severe hyperkalemia, better. 3. Edema, controlled. 4. Hypertension, stable. 5. Altered mentation. Overall labs are better. Avoid nephrotoxins. Limit potassium intake. We will follow. Job ID: [id number]
--- NOTE | 2018-11-03 20:46 | EKG ---
Test Reason : CHEST PAIN Blood Pressure : / mmHG Vent. Rate : 086 BPM Atrial Rate : 086 BPM P-R Int : 124 ms QRS Dur : 090 ms QT Int : 390 ms P-R-T Axes : 051 -06 095 degrees QTc Int : 466 ms Normal sinus rhythm Minimal voltage criteria for LVH, may be normal variant Nonspecific T wave abnormality Abnormal ECG Confirmed by SABRINA MACHADO D.O. ([id number]), industrial editor PORFIRIO HOLDER ([id number]) on 11/03/2018 8:45:33 PM Referred By: CARTER Confirmed By:SABRINA MACHADO D.O.
--- NOTE | 2018-11-03 20:46 | EKG ---
Test Reason : Blood Pressure : / mmHG Vent. Rate : 087 BPM Atrial Rate : 087 BPM P-R Int : 156 ms QRS Dur : 092 ms QT Int : 376 ms P-R-T Axes : 038 -07 111 degrees QTc Int : 452 ms Normal sinus rhythm Minimal voltage criteria for LVH, may be normal variant Nonspecific T wave abnormality Abnormal ECG Confirmed by SABRINA MACHADO D.O. ([id number]), graphic editor PORFIRIO HOLDER ([id number]) on 11/03/2018 8:45:32 PM Referred By: Confirmed By:SABRINA MACHADO D.O.
[2018-11-03] MEDS: cloNIDine 0.3 MG TAB PO SCH (21:51)
[2018-11-03] MEDS: Insulin Glargine 30 UNITS in Pre-Filled Syringe SC SCH (21:52)
[2018-11-04] MEDS: HYDROcodone/Acetaminophen 10/325 mg Tablet PO PRN ×2 (03:42→12:56)
[2018-11-04] MEDS: Docusate 100 MG CAP PO PRN (03:42)
[2018-11-04] MEDS ORDERED: Bisacodyl 10 MG SUPP PR PRN (09:00)
[2018-11-04] MEDS ORDERED: Fleet Enema 133 ML BOT PR SCH (09:00)
[2018-11-04] MEDS: Aspirin 325 MG TAB PO SCH (10:59)
[2018-11-04] MEDS: Famotidine 20 MG TAB PO SCH (10:59)
[2018-11-04] MEDS: Carvedilol 6.25 MG TAB PO SCH (11:00)
[2018-11-04] MEDS: Gabapentin 300 MG CAP PO SCH (11:00)
[2018-11-04] MEDS: Bisacodyl 5 MG TAB PO PRN (11:00)
[2018-11-04] MEDS: guaiFENesin ER 600 MG TAB PO SCH (11:02)
[2018-11-04 12:25] VITALS: BP 165/92; TEMP 98.4
--- NOTE | 2018-11-04 13:05 | PDOC.PN ---
- Subjective Encounter Start Date: 11/04/18 Encounter Start Time: 07:40 Subjective: no sob or palp -: feels good, is tolerating oral diet - Objective Resuscitation Status - Order Detail: 10/28/18 07:51 Resuscitation Status Routine Resuscitation Status: FULL: Full Resuscitation MAR Reviewed: Yes Vital Signs & Weight: Vital Signs (12 hours) Temp Pulse Resp BP BP BP Pulse Ox 11/04/18 12:00 98.4 F 100 21 H 165/92 H 98 11/04/18 11:00 128/75 11/04/18 08:00 98.2 F 65 16 123/63 97 11/04/18 04:00 98.6 F 89 18 139/69 99 Weight Weight 282 lb I&O: 11/03/18 11/04/18 11/05/18 06:59 06:59 06:59 Intake Total 1090 600 Output Total 2150 1000 Balance -1060 -400 Result Diagrams: 10/31/18 05:54 11/03/18 04:50 Additional Labs: Accuchecks 11/04/18 11/04/18 11/03/18 10:50 05:44 20:15 POC Glucose 151 H 136 H 146 H 11/03/18 16:33 POC Glucose 134 H Phys Exam - Physical Examination HEENT: PERRLA, moist MMs Neck: no JVD, supple Respiratory: no wheezing, no rales Cardiovascular: RRR, no significant murmur Gastrointestinal: soft, non-tender, positive bowel sounds Musculoskeletal: no edema, pulses present Neurological: non-focal, moves all 4 limbs Psychiatric: normal affect, A&O x 3 Dx/Plan (1) Migraine Code(s): G43.909 - MIGRAINE, UNSP, NOT INTRACTABLE, WITHOUT STATUS MIGRAINOSUS Status: Acute Qualifiers: Migraine type: without aura Intractability: intractable Comment: resolving (2) Acute worsening of stage 3 chronic kidney disease Code(s): N18.3 - CHRONIC KIDNEY DISEASE, STAGE 3 (MODERATE) Status: Acute (3) Sleep apnea Code(s): G47.30 - SLEEP APNEA, UNSPECIFIED Status: Suspected Comment: prior sleep study in 2017 was -ve at [facility] per family (4) Acute and chronic respiratory failure with hypoxia Code(s): J96.21 - ACUTE AND CHRONIC RESPIRATORY FAILURE WITH HYPOXIA Status: Resolved (5) Anemia Code(s): D64.9 - ANEMIA, UNSPECIFIED Status: Chronic Qualifiers: Chronic kidney disease stage: stage 2 (mild) (6) Diabetes mellitus Code(s): E11.9 - TYPE 2 DIABETES MELLITUS WITHOUT COMPLICATIONS Status: Chronic Qualifiers: Diabetes mellitus type: type 2 Diabetes mellitus jail insulin use: with jail use Diabetes mellitus complication status: with kidney complications Diabetes mellitus complication detail: with chronic kidney disease Chronic kidney disease stage: stage 3 (moderate) Qualified Code(s): E11.22 - Type 2 diabetes mellitus with diabetic chronic kidney disease; N18.3 - Chronic kidney disease, stage 3 (moderate); Z79.4 - blood bank credit clerk (current) use of insulin Comment: controlled (7) HTN (hypertension) Code(s): I10 - ESSENTIAL (PRIMARY) HYPERTENSION Status: Chronic Qualifiers: Hypertension type: essential hypertension Qualified Code(s): I10 - Essential (primary) hypertension Comment: controlled (8) Hx of cancer of lung Code(s): Z85.118 - PERSONAL HISTORY OF MALIGNANT NEOPLASM OF BRONCHUS AND LUNG Status: Chronic (9) Morbid obesity Code(s): E66.01 - MORBID (SEVERE) OBESITY DUE TO EXCESS CALORIES Status: Chronic (10) CHF (congestive heart failure), NYHA class III Code(s): I50.9 - HEART FAILURE, UNSPECIFIED Status: Chronic Qualifiers: Congestive heart failure type: combined Comment: ef of 20% - Plan hemostable -: dc pt home -: to f/u with her cardio in 4 weeks -: d/w patient and daughter at bedside -: is amb in room with rw * .
--- NOTE | 2018-11-04 13:54 | PRG ---
DATE OF SERVICE: 11/04/2018 SUBJECTIVE: The patient tells me she is probably going home. OBJECTIVE: VITAL SIGNS: On exam, temperature 98.4, pulse 100, respirations 21, O2 saturation 98%, blood pressure 165/92. HEENT: Unremarkable. NECK: No JVD. LUNGS: Clear. CARDIAC: S1, S2. Regular. ABDOMEN: Soft. EXTREMITIES: No edema. ASSESSMENT: 1. Status post respiratory failure related to hypercapnia. 2. Chronic obstructive pulmonary disease. PLAN: Continue present care. She seems ready for discharge. Job ID: [id number]
--- NOTE | 2018-11-04 14:14 | PRG ---
DATE OF SERVICE: 11/04/2018 SUBJECTIVE: Patient was seen and examined at bedside and overnight events noted. Patient denies any shortness of breath or chest pain or palpitation. No history of nausea or vomiting or diarrhea or fever or chills or cramps. OBJECTIVE: GENERAL: This is a well-built female, in no apparent distress. VITAL SIGNS: Temperature 98.4. Pulse 100. Respiratory rate 18. Blood pressure 168/92. HEENT: Atraumatic, normocephalic. Oral mucosa is moist NECK: Supple. CARDIOVASCULAR: S1, S2 heard. Rate and rhythm regular. RESPIRATORY: Clear to auscultation. GASTROINTESTINAL: Abdomen is soft. MUSCULOSKELETAL: No tenderness. No edema. DERMATOLOGIC: No skin rash. NEUROLOGIC: Alert and awake and oriented X3. No focal neurologic deficits. Moving all the extremities. PSYCHIATRIC: Mood and affect normal. LABORATORY DATA: None done today. ASSESSMENT AND PLAN: 1. Acute kidney injury, feeling better. 2. Severe hyperkalemia, better. Repeat labs in the morning. 3. Edema. 4. Hypertension, stable. 5. Altered mentation. 6. Labs are getting better. We will recheck labs in the morning. Limit potassium intake. Job ID: [id number]
--- NOTE | 2018-11-05 16:10 | DIS ---
DATE OF ADMISSION: 10/28/2018 DATE OF DISCHARGE: 11/04/2018 PRIMARY DISCHARGE DIAGNOSES: Acute respiratory failure with hypoxia, likely due to obstructive sleep apnea; migraine, resolving; acute kidney injury with history of chronic kidney disease, stage 3; chronic anemia; diabetes mellitus type 2; hypertension; prior history of lung cancer, in remission; congestive heart failure with ejection fraction of 20%, [place] Heart Association classification III; morbid obesity. PROCEDURES DONE DURING HOSPITALIZATION: Nuclear stress test done showed no evidence of reversible ischemia. Ejection fraction was 28% with global hypokinesis. CT head without contrast done showed no acute intracranial hemorrhage. Echo with 2D Doppler showed EF of 20% to 25% with diastolic dysfunction. Severe global hypokinesis was seen. Pacemaker wire was seen in the right chamber. Mild to moderate aortic regurgitation. RV systolic pressures were 37 mmHg. The patient had right femoral vein Trialysis catheter placed on 10/31/2018 for dialysis for hyperkalemia. H and H 11 and 35, platelet count 169, white count of 6.8, MCV is 102. Blood gas on the showed a pH of 7.29, pCO2 of 65, PO2 of 83. Discharge BUN and creatinine on the were 26 and 1.38. Discharge potassium 4.4, serum bicarb of 27. Potassium of 7.6 on the with BUN and creatinine of 33 and 1.7. Troponin x3 was negative. BNP 152 on the day of admission. HBS antigen was nonreactive. DISCHARGE MEDICATIONS: 1. Albuterol inhaler q.6 hourly p.r.n. 2. Aspirin 81 mg p.o. daily. 3. Coreg 6.25 mg twice daily. 4. Clonidine 0.3 mg p.o. at bedtime. 5. Neurontin 300 mg p.o. three times daily. 6. [place] p.r.n. for pain. 7. Lantus 30 units subcu q.p.m. 8. Metformin 500 mg p.o. twice daily. 9. Fish oil 1000 mg p.o. daily. 10. Zantac 75 mg p.o. twice daily. 11. Atorvastatin 20 mg p.o. daily. 12. MiraLAX 17 g twice daily. 13. Florastor 250 mg p.o. daily. ALLERGIES: TO BENZONATATE AND KETOROLAC. INPATIENT CONSULT: Dr. Hernadez for Pulmonology, Dr. Noel for Nephrology. BRIEF COURSE DURING HOSPITALIZATION: The patient initially came to ER on the with complaints of chest pain and headache. The patient was also feeling dizziness and shortness of breath. The patient has had a complete cardiac workup including 3 sets of troponin and a nuclear stress test done. There was no reversible ischemia seen on the stress test. On the , the patient became hypoxic with respiratory acidosis, likely due to underlying sleep apnea. She was placed on BiPAP and transferred to [facility]. The patient has successfully come out of her BiPAP from last 2 days. She is on room air. The patient has ambulated in the room. Also, the patient had sudden hyperkalemia with potassium going up to 7. She had brief hemodialysis done for the same and her Trialysis catheter has been removed from the right femoral site. She is hemodynamically stable. 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 She is also advised not to use narcotics and sleep aids due to BMI of 38 with underlying undiagnosed sleep apnea. Please see a [id number] documentation for the day of discharge on [employer]. Job ID: [id number] [facility] HOSPITALSaira
--- NOTE | 2018-11-06 20:00 | EKG ---
Test Reason : Blood Pressure : / mmHG Vent. Rate : 095 BPM Atrial Rate : 095 BPM P-R Int : 148 ms QRS Dur : 098 ms QT Int : 376 ms P-R-T Axes : 058 -12 182 degrees QTc Int : 472 ms Normal sinus rhythm Minimal voltage criteria for LVH, may be normal variant Nonspecific T wave abnormality Prolonged QT Abnormal ECG When compared with ECG of 28-OCT-2018 06:42, (Unconfirmed) Nonspecific T wave abnormality, worse in Inferior leads Confirmed by BRENDA TREVINO ([id number]) on 11/06/2018 7:59:33 PM Referred By: ADIS Confirmed By:BRENDA TREVINO
--- NOTE | 2018-11-08 07:28 | PQF ---
TAMI HENDERSON VINAYA KUMAR MD [id number] [facility]-242 [id number] CLINICAL DOCUMENTATION CLARIFICATION FORM: POST DISCHARGE DATE: 11/08/2018 ATTN: Dr. Nails Please exercise your independent, professional judgment in responding to the clarification form. Clinical indicators are provided on the bottom of this form for your review Diagnosis: Acute Kidney Injury Present on Admission (POA): [ ] Yes [ ] No [ x ] Unable to determine Coding guidelines require hospitals to identify whether a diagnosis was present on admission (POA) or not. To accurately assign the appropriate POA indicator, this information must be clearly documented within the medical record. CLINICAL INDICATORS - SIGNS / SYMPTOMS / LABS Per H&Herb: Chest pain and sudden onset of ability to hear and feel heartbeat in her head. Lexa flushed. Chest tightness. Dizziness. Mild nausea. Creatinine 1.44. BUN 23. Beginning 10/31 Hospitalist Progress Notes: Acute worsening of stage 3 chronic kidney disease. 11/[address] Noel: Acute kidney injury. Avoid nephrotoxins. Severe hyperkalemia. RISK FACTORS: Stage 3 chronic kidney disease. Hyperkalemia. TREATMENT: Right femoral vein Trialysis catheter with hemodialysis 10/31/2018. Monitor BUN, creatinine and potassium. (This form is maintained as a part of the permanent medical record) 2014 [employer]. All Rights Reserved Mariam [email or web address] [phone] MTDD
--- NOTE | 2018-11-08 14:42 | STRESS ---
Acquisition Time: 2018-10-28 13:39:10 Total Exercise Time: 00:01:00 Test Indications: CHEST PAIN Medications: Protocol: LEXISCAN Max HR: 113 BPM 76% of Pred: 148 BPM Max BP: 150/080 mmHG Max Work Load: 1.0 METS THE PATIENT WAS INJECTED WITH LEXISCAN. SHE DID NOT DEVELOP CHEST PAIN. THERE WAS NO SIGNIFICANT ST DEPRESSION. AWAIT NUCLEAR IMAGES FOR DEFINITIVE DIAGNOSIS. Confirmed by ORVILLE MORALES ([id number]), associate entertainment editor SHRUTHI GRIMALDO ([id number]) on 11/08/2018 2:41:42 PM Referred By: Confirmed By:ORVILLE MORALES
== END 2018-11-04 15:30 | disposition home health service (06) | DRG 102 ==
LOC: ERS 05:14 → OBSVTOIN 07:49 → ERHOLD 07:49 → 2SW 15:15 → IMCU/EMU 11-02 11:15
PROVIDERS: ADMIT Internal Medicine; ATTEND Internal Medicine
PROC: 06HM33Z Insertion of Infusion Device into Right Femoral Vein, Percutaneous Approach (ICD-10-PCS; principal; 2018-10-31)
PROC: 5A1D70Z Performance of Urinary Filtration, Intermittent, Less than 6 Hours Per Day (ICD-10-PCS; 2018-10-31)
PROC: 5A09357 Assistance with Respiratory Ventilation, Less than 24 Consecutive Hours, Continuous Positive Airway Pressure (ICD-10-PCS; 2018-11-02)
DX: G43.919 Migraine, unspecified, intractable, without status migrainosus (principal); J96.01 Acute respiratory failure with hypoxia; N17.9 Acute kidney failure, unspecified; I13.0 Hypertensive heart and chronic kidney disease with heart failure and stage 1 through stage 4 chronic kidney disease, or unspecified chronic kidney disease; I50.42 Chronic combined systolic (congestive) and diastolic (congestive) heart failure; I42.9 Cardiomyopathy, unspecified; E87.5 Hyperkalemia; R07.9 Chest pain, unspecified; N18.3 Chronic kidney disease, stage 3 (moderate); E11.22 Type 2 diabetes mellitus with diabetic chronic kidney disease; J44.9 Chronic obstructive pulmonary disease, unspecified; G47.33 Obstructive sleep apnea (adult) (pediatric); F41.9 Anxiety disorder, unspecified; F31.9 Bipolar disorder, unspecified; E66.01 Morbid (severe) obesity due to excess calories; D63.1 Anemia in chronic kidney disease; Z68.38 Body mass index [BMI] 38.0-38.9, adult; F17.220 Nicotine dependence, chewing tobacco, uncomplicated; Z85.118 Personal history of other malignant neoplasm of bronchus and lung; Z92.3 Personal history of irradiation; Z86.718 Personal history of other venous thrombosis and embolism; Z85.038 Personal history of other malignant neoplasm of large intestine; Z88.8 Allergy status to other drugs, medicaments and biological substances; Z79.82 Long term (current) use of aspirin; Z79.4 Long term (current) use of insulin; Z79.899 Other long term (current) drug therapy; Z95.810 Presence of automatic (implantable) cardiac defibrillator
CPT/HCPCS: 36415; 36416; 70450; 71045; 78452; 80048; 80053; 80076; 80202; 81001; 82805; 83605; 83880; 84484; 85025; 87040; 87086; 87149; 87340; 90935; 93005; 93010; 93017; 93306; 93880; 93970; 94640; 94660; 96374; A9500; G0257; G0365; J1100; J1110; J1200; J1642; J1644; J1815; J1825; J1885; J2001; J2270; J2405; J2543; J2765; J2785; J3370; J7050; J7611

== ENCOUNTER 2019-12-03 19:17 | Observation (INO) | payer MEDICARE, MEDICAID ==
[~2019-12-03 19:17] MED LIST changes: -ISOVUE-370 76%-LOCM 1 ML ONE; +Iopamidol-370 76% 500 ML 1 ML ONE
[2019-12-03 19:49] LABS: #Basophils 0.1 thou/uL (0.0-0.2); #Eosinphils 0.1 thou/uL (0.0-0.7); #Lymphocytes 2.2 thou/uL (1.20-3.40); #Monocytes 0.3 thou/uL (0.11-0.59); #Neutrophils 4.3 thou/uL (1.40-6.50); %Basophils 0.9 % (0.0-1.0); %Lymphocytes 31.6 % (21.0-51.0); %Monocytes 4.3 % (0.0-10.0); %Neutrophils 61.2 % (42.0-75.0); Hemoglobin 12.7 g/dL (12.0-16.0); Mean Corpuscular HGB CONC 32.6 g/dL (32.0-36.0); Mean Corpuscular Hemoglobin 32.9 pg (27.0-31.0); Mean Platelet Volume 7.6 fL (7.4-10.4); Platelet Count 251 thou/uL (130-400); Red Blood Cell (RBC) Count 3.87 mill/uL (4.20-5.40)
[2019-12-03 20:10] LABS: ALT (SGPT) 11 U/L (8-55); AST (SGOT) 16 U/L (5-34); Albumin 4.3 g/dL (3.4-4.8); Alkaline Phosphatase 105 U/L (40-110); Anion Gap 15 mmol/L (10-20); BUN (Urea Nitrogen) 18 mg/dL (9.8-20.1); Bilirubin, Total 0.2 mg/dL (0.2-1.2); CK (CPK) 108 U/L (29-168); Calc. Creatinine Clearance 0 mL/min (70-130); Calcium 9.8 mg/dL (7.8-10.44); Carbon Dioxide 26 mmol/L (23-31); Chloride 103 mmol/L (98-107); Estimated GFR-MDRD 45; Glucose 136 mg/dL (83-110); Potassium 3.8 mmol/L (3.5-5.1); Protein, Total 8.3 g/dL (6.0-8.3); Sodium 140 mmol/L (136-145)
--- NOTE | 2019-12-03 20:12 | RAD ---
Portable frontal chest radiograph: 12/03/2019 COMPARISON: 10/31/2018 chest x-ray and CT angiogram chest 12/02/2017 HISTORY: Chest pain FINDINGS: Linear density noted in the right lung base laterally, as seen on prior examination, sugges ting chronic scar/atelectasis. Dual lead AICD present on the left. No pneumothorax or pleural fluid. No lobar consolidation or alveolar edema. IMPRESSION: Chronic findings as detailed above.
[2019-12-04] MEDS ORDERED: Acetaminophen 325 MG TAB PO PRN (02:15)
[2019-12-04] MEDS ORDERED: Acetaminophen 650 MG Suppository PR PRN (02:15)
[2019-12-04] MEDS ORDERED: Nitroglycerin 0.4 MG TAB (25 Tab Bottle) PO PRN (02:20)
[2019-12-04 02:32] LABS: Troponin I Less than 0.010 ng/mL (< 0.028)
[2019-12-04 02:48] VITALS: BMI 35.8
--- NOTE | 2019-12-04 03:17 | HP ---
TIME OF ASSESSMENT: 0100 hours. CHIEF COMPLAINT: Chest pain. HISTORY OF PRESENT ILLNESS: Ms. Sinha is a 74-year-old woman with a known history of CAD, hypertension, diabetes mellitus, and hyperlipidemia as well as CKD, who reports having chronic chest pain that has gradually been worsening over the last several days. The patient states she felt like she needed to come in and have it checked as it has slightly worsened further today. The patient states that the pain comes on while she is at rest and is not made worse or better by anything. She does report feeling some increased discomfort with certain movements. Reports having aching in her back. She has known global hypokinesis with diastolic dysfunction noted on most recent echo with an EF of 20% to 25%. The patient apparently has had a stress test done on October 28, 2018 showing no evidence of reversible ischemia. The EF was 20% with global hypokinesis noted. She reports having a chronic cough and dips tobacco. She states her cough is productive, but she is unsure what color sputum it is due to the fact that she constantly dips. She denies any shortness of breath. Has had occasional wheezing, but has a history of tobacco use and states this is chronic for her. Denies having any recent fevers or chills. No abdominal pain or cramping. Denies any urinary symptoms. No headaches or dizziness. The patient reports an occasional "electrical discomfort" in the left side of her chest. She states the pain that brought her in today was worsening of the pain she experiences in the right side of her chest. The patient states she has had issues with occasional nausea, which has been affecting her appetite. She states this happens any time she eats. She is awaiting an endoscopic procedure. PAST MEDICAL HISTORY: 1. CKD, stage 3. 2. Obstructive sleep apnea. 3. Chronic anemia. 4. Type 2 diabetes mellitus. 5. Hypertension. 6. History of lung cancer, in remission. 7. CHF with EF of 20%. 8. Morbid obesity. 9. Anxiety. 10. Bipolar disorder. 11. Schizophrenia. PAST SURGICAL HISTORY: 1. AICD placement. 2. Colon cancer surgery. 3. Appendectomy. 4. Cholecystectomy. 5. Hernia repair. 6. Tonsillectomy. SOCIAL HISTORY: The patient lives with her family. She dips tobacco. Denies any current cigarette smoking, though she did smoke in the past. Denies any illicit drug use. No alcohol consumption. ALLERGIES: 1. BENZONATATE. 2. KETORALAC. CURRENT MEDICATIONS: 1. Promethazine. 2. Spironolactone. 3. Glyburide. 4. Temazepam. 5. Nitroglycerin sublingual. 6. Lantus. 7. Fluticasone. 8. Docusate sodium. 9. Clonidine. 10. Carvedilol. 11. Aspirin. PHYSICAL EXAMINATION: GENERAL: The patient appears well developed, well nourished, is in no acute distress. VITAL SIGNS: Temperature 98.5, pulse 95, blood pressure 174/69, respirations 18, O2 saturation 98% on room air. HEENT: Normocephalic and atraumatic. Pupils are equal, round, and reactive to light. Sclerae icterus. Oropharynx is clear. NECK: Supple. LUNGS: Without rales or rhonchi. She did have faint expiratory wheezing at the bilateral bases. Normal chest expansion and no tachypnea. ABDOMEN: Soft, nontender, nondistended. Normoactive bowel sounds present. No guarding or rigidity. No renal angle tenderness. EXTREMITIES: No lower leg swelling or edema. NEUROLOGIC: Alert and oriented x3. SKIN: Warm and dry. LABORATORY DATA: White blood count 7, hemoglobin 12.7, hematocrit 38.9, platelets 251, neutrophils 61.2%. D-dimer 0.93. Sodium 140, potassium 3.8, anion gap 15, BUN 18, creatinine 1.40, GFR 45, glucose 136, calcium 9.8. LFTs unremarkable. IMAGING DATA: 1. Chest x-ray showed no acute findings. She is noted to have a linear density in the right lung base laterally seen on prior examination. This suggests chronic scar/atelectasis. She has a dual lead AICD present on the left. No lobar consolidation or alveolar edema. 2. CT angiogram of the chest showed no definite evidence of PE. According to ED ARTIST'S REPRESENTATIVEErvin, CT angiogram could not fully evaluate for any small peripheral PEs. IMPRESSION AND PLAN: Ms. Sinha is a 74-year-old woman, who presents to the emergency department due to progressively worsening chest pain. She has had chronic chest pain and undergone investigations in the past. She states in the last several days, it has gradually worsened. She has not been following with Cardiology as of recently. She had a stress test done a little over 1 year ago, which showed no reversible ischemia and a reduced EF of 20%. The patient has an AICD in place. She reports electrical type pain involving the left side of her chest in addition to the chronic pain on the right side of her chest. We will continue to trend troponins. We will obtain AICD print out. Per discussion with Dr. Huff, we will place a consultation with Cardiology. We will order echo as it has been 1 year from the last one. She will remain on continuous cardiac monitoring and we will keep her n.p.o. Given CT angiogram showing no evidence of central PE, but no clear assessment for peripheral PEs. A venous Doppler has been ordered. We will monitor blood pressure and blood glucose. We will initiate insulin sliding scale. We will hold diabetes medications given plans to keep her n.p.o. We will resume antihypertensives once verified. Given her history of COPD and mild wheezing noted on exam, we will order DuoNebs. Code status full. Surrogate decision maker is her son, Gonsalo Sinha. Case discussed with attending, who agrees with plan of care as described above. Job ID: [id number]
[2019-12-04 04:13] LABS: #Basophils 0.1 thou/uL (0.0-0.2); #Eosinphils 0.2 thou/uL (0.0-0.7); #Lymphocytes 1.8 thou/uL (1.20-3.40); #Monocytes 0.4 thou/uL (0.11-0.59); #Neutrophils 3.6 thou/uL (1.40-6.50); %Basophils 1.2 % (0.0-1.0); %Eosinophils 3.1 % (0.0-10.0); %Lymphocytes 29.6 % (21.0-51.0); %Monocytes 6.3 % (0.0-10.0); %Neutrophils 59.8 % (42.0-75.0); Hemoglobin 11.6 g/dL (12.0-16.0); Mean Corpuscular HGB CONC 33.2 g/dL (32.0-36.0); Mean Corpuscular Hemoglobin 33.2 pg (27.0-31.0); Mean Platelet Volume 7.9 fL (7.4-10.4); Platelet Count 214 thou/uL (130-400); RBC Distribution Width 11.9 % (11.5-14.5); Red Blood Cell (RBC) Count 3.48 mill/uL (4.20-5.40)
[2019-12-04 04:27] LABS: Anion Gap 15 mmol/L (10-20); BUN (Urea Nitrogen) 16 mg/dL (9.8-20.1); Calc. Creatinine Clearance 79 mL/min (70-130); Carbon Dioxide 23 mmol/L (23-31); Chloride 106 mmol/L (98-107); Estimated GFR-MDRD 55; Potassium 3.8 mmol/L (3.5-5.1); Sodium 140 mmol/L (136-145)
[2019-12-04 04:28] LABS: Calcium 9.4 mg/dL (7.8-10.44); Cardiac Risk 2.7 (Less than 4.5); Cholesterol 144 mg/dl (< 200 Desired); Glucose 79 mg/dL (83-110); HDL Cholesterol 54 mg/dL (>60 Neg Risk); LDL Cholesterol, Calculated 80 mg/dL; Triglycerides 51 mg/dL (Less than 150)
[2019-12-04] MEDS ORDERED: D5 1/2 NS 500 ML IV SCH (04:30)
[2019-12-04 04:33] LABS: Troponin I 0.013 ng/mL (< 0.028)
--- NOTE | 2019-12-04 06:53 | CT ---
PRELIMINARY REPORT/[facility]/EMERGENCY AFTER HOURS PROCEDURE: Receipt of this report by the clinical staff was confirmed with Jagjit Reynaga EPIDEMIOLOGY INVESTIGATOR by Joyce Devi on Dec 04, 2019 00:27:00 INTERNAL MEDICINE SPECIALIST. Addendum electronically signed by Joyce Devi on December 04, 2019 12:28:37 AM INTERNAL MEDICINE SPECIALIST Comparison: None Indication: ER WR... Pt presents for intermittent chest pain X 1 week. History of CAD, pacemaker, HTN , DM, and HLD. Dyspnea worse with exertion and cough. Elevated d-dimer Findings: No aortic aneurysm or evidence of dissection. Cardiomegaly. No pericardial effusion. Linear and patchy opacity in the right mid chest along the minor fissure and major fissure. There are adjacent chronic appearing rib defects. Small noncalcified nodules in the left lower lobe. No pleural effusion, pneumothorax or edema. Suspicious for segmental and subsegmental emboli in the lateral segment of the right lower lobe. The parenchymal abnormality in this area limits visualization of the pulmonary arteries. The mediastinum is otherwise normal. Impression: Irregularity in the lateral right mid lung with overlying chronic rib defects. This is most likely sc arring of uncertain etiology. The segmental and subsegmental pulmonary arteries of the right middle l obe and lateral right lower lobe are suboptimally visualized in this area. There are findings suspici ous but not definitive for distal segmental and subsegmental emboli in this area. This could also be benign artifact associated with the parenchymal abnormality. There is no other evidence of embolus an d this makes acute emboli less likely. Correlation with lower extremity ultrasound could be considere d. No other cause for symptoms identified. ELECTRONICALLY SIGNED BY: Masoud Lock MD Dec 04, 2019 12:24:51 AM INTERNAL MEDICINE SPECIALIST This report is intended for review by the ordering physician only, in accordance of law. If you recei ve this report in error, please call [facility] at [phone]. FINAL REPORT EMERGENCY AFTER HOURS CTA CHEST WITH CONTRAST: COMPARISON: 12/02/2017. FINDINGS/IMPRESSION: I DISAGREE with the findings and impression given in the preliminary report per [facility] phys ician. The findings in the right middle lobe and right lower lobe are unchanged compared to the prior examin ation and likely represent scarring rather than pulmonary emboli. There are right-sided rib fractures and this scarring is likely secondary to a prior episode of trauma/pulmonary contusion. No pulmonary embolism is identified on this examination.
--- NOTE | 2019-12-04 07:33 | ULT ---
PRELIMINARY REPORT/[facility]/EMERGENCY AFTER HOURS PROCEDURE: EXAM: US Duplex bilateral Lower Extremity Veins. CLINICAL HISTORY: BLE pain/edema TECHNIQUE: Real-time ultrasound scan of the veins of the bilateral lower extremity with color Doppler flow, spectral waveform analysis and compression. COMPARISON: None provided. FINDINGS: DEEP VEINS: The common femoral, femoral, and popliteal veins are echolucent and compressible. These vessels demonstrate respiratory variation and augmentation. There is normal color Doppler flow throughout. The visualized calf veins are also patent. SUPERFICIAL VEINS: The visualized greater saphenous vein is patent. SOFT TISSUES: No popliteal fossa cyst or other abnormalities. IMPRESSION: No deep venous thrombosis in the bilateral lower extremity. ELECTRONICALLY SIGNED BY: Guanaco Pacheco MD Dec 04, 2019 2:05:07 AM SHIFT SUPERINTENDENT FINAL REPORT ULTRASOUND VENOUS DOPPLER BILATERAL: History: Edema and pain. Possible PE. Comparison: None. Findings: Real-time grayscale, color, and spectral analysis of the bilateral lower extremity venous system was performed. The common femoral, femoral, proximal portions greater saphenous and deep femoral veins as well as the popliteal and posterior tibial veins were interrogated. Impression: Normal flow, augmentation, and compression. Transcribed Date/Time: 12/04/2019 7:50 AM
[2019-12-04] MEDS: Aspirin 81 mg Enteric Coated Tablet PO SCH (09:49)
--- NOTE | 2019-12-04 09:55 | CON ---
DATE OF CONSULTATION: HISTORY OF PRESENT ILLNESS: The patient is a 74-year-old woman with a history of nonischemic cardiomyopathy, who presents with right-sided chest discomfort. The patient has a history of nonischemic cardiomyopathy. She states nearly 5 years ago thattahminae was followed at the [facility] [place]. The patient underwent a cardiac catheterization and was found to have a cardiomyopathy. She was found to have no apparent significant coronary artery disease. The patient has subsequently been followed by Dr. Dawn. She has a history of lung carcinoma, for which she underwent radiation. The patient reports she has a long history of persistent right-sided chest discomfort. This is made worse whenever she takes a deep breath or with movement. This has been occurring on a daily basis. PAST MEDICAL HISTORY: 1. Lung carcinoma. 2. Colon carcinoma. 3. Cardiomyopathy. 4. Hypertension. 5. History of AICD placement. 6. Dyslipidemia. 7. Diabetes mellitus. 8. Renal insufficiency. 9. COPD. 10. History of upper extremity DVT. PAST SURGICAL HISTORY: Lung carcinoma, cholecystectomy, hernia, tonsillectomy, and colectomy. ALLERGIES: TORADOL AND BENZONATATE. SOCIAL HISTORY: Former smoker. FAMILY HISTORY: Adopted. MEDICATIONS: See nursing list. REVIEW OF SYSTEMS: Ten-point system otherwise unremarkable. PHYSICAL EXAMINATION: GENERAL: Obese woman, in no acute distress. VITAL SIGNS: Blood pressure of 141/67. NECK: Showed no jugular venous distention. LUNGS: Clear to auscultation. HEART: Regular rate and rhythm. Normal S1 and S2. No murmurs. ABDOMEN: Distended. EXTREMITIES: Showed no edema. VASCULAR: Radial pulses 2+. LABORATORY DATA: White blood cell count 6.0, hemoglobin 11.6, hematocrit 34.8, and platelets were 214. Sodium is 140, potassium 3.8, chloride 106, bicarbonate 23 , BUN 16, and creatinine 1.17. Troponin 0.013. EKG revealed her to have normal sinus rhythm with a nonspecific T-wave abnormality. CT scan revealed her to have possible evidence of a pulmonary embolus, which was inconclusive. IMPRESSION: 1. Chest pain, atypical, suggestive of musculoskeletal discomfort. 2. Cardiomyopathy. 3. History of AICD placement. 4. Possible pulmonary embolus. 5. History of upper extremity deep vein thrombosis. 6. Hypertension. 7. Dyslipidemia. 8. Obesity. This patient presents with atypical chest pain. It is imperative that a pulmonary embolus be excluded .From a cardiac standpoint, we will try to obtain the records from Dr. Dawn. We would treat the patient's chest discomfort with nonsteroidal medication or hydrocodone. We will follow this patient with you through her hospitalization. Job ID: [id number] MTDD
[2019-12-04] MEDS ORDERED: Nitroglycerin 0.4 MG TAB (25 Tab Bottle) SL PRN (10:35)
[2019-12-04] MEDS ORDERED: Non-Formulary Item 1 EACH (Albuterol Sulfate [Proair Respiclick] 90 MCG) INH PRN (10:35)
[2019-12-04] MEDS ORDERED: HYDROcodone/Acetaminophen 10/325 mg Tablet PO PRN (10:35)
[2019-12-04] MEDS ORDERED: PROVENTIL INHALER 6.7 G (200 INHALATIONS) INH PRN (11:08)
--- NOTE | 2019-12-04 12:57 | PDOC.HOSPP ---
- Subjective Encounter Date: 12/04/19 Encounter Time: 08:15 Subjective: Patient seen and examined. No new complaints. No overnight events - Objective Vital Signs & Weight: Vital Signs (12 hours) Temp Pulse Pulse Pulse Resp BP BP 12/04/19 11:29 80 18 12/04/19 08:52 87 77 116/60 12/04/19 07:40 97.6 F 83 20 12/04/19 03:55 98.0 F 75 18 143/77 H 12/04/19 02:24 98.1 F 73 18 156/108 H BP BP Pulse Ox 12/04/19 11:29 175/80 H 98 12/04/19 08:52 127/59 L 12/04/19 07:40 141/67 H 98 12/04/19 03:55 98 12/04/19 02:24 97 Weight Weight 256 lb 9.6 oz I&O: 12/03/19 12/04/19 12/05/19 06:59 06:59 06:59 Intake Total 220 480 Output Total 500 Balance -280 480 Result Diagrams: 12/04/19 04:00 12/04/19 04:00 Radiology Reviewed by me: Yes EKG Reviewed by me: Yes Hospitalist ROS - Review of Systems ENT: denies: ear pain, ear discharge, nose pain, nose discharge, nose congestion , mouth pain, mouth swelling, throat pain, throat swelling, other Respiratory: denies: cough, dry, shortness of breath, hemoptysis, SOB with excertion, pleuritic pain, sputum, wheezing, other Cardiovascular: denies: chest pain, palpitations, orthopnea, paroxysmal noc. dyspnea, edema, light headedness, other Gastrointestinal: denies: nausea, vomiting, abdominal pain, diarrhea, constipation, melena, hematochezia, other Genitourinary: denies: dysuria, frequency, incontinence, hematuria, retention, other - Medication Medications: Active Medications Generic Name Dose Route Start Last Admin Trade Name Freq PRN Reason Stop Dose Admin Aspirin 81 mg 12/04/19 09:00 12/04/19 09:49 Ecotrin PO 81 mg DAILY CATHLEEN Administration Dextrose/Sodium Chloride 500 mls @ 50 mls/hr 12/04/19 04:30 12/04/19 04:50 D5 1/2 Ns IV 12/04/19 14:29 500 mls .Q10H CATHLEEN Administration - Exam General Appearance: NAD, awake alert Eye: PERRL, anicteric sclera ENT: normocephalic atraumatic, no oropharyngeal lesions Neck: supple, symmetric, no JVD, no thyromegaly Heart: RRR, no murmur, no gallops, no rubs Respiratory: CTAB, no wheezes, no rales, no ronchi Gastrointestinal: soft, non-tender, non-distended, normal bowel sounds Extremities: no cyanosis, no clubbing Skin: normal turgor, no lesions Neurological: no focal deficits Musculoskeletal: normal tone, normal strength Psychiatric: normal affect, normal behavior Hosp A/P (1) Chest pain Code(s): R07.9 - CHEST PAIN, UNSPECIFIED Status: Acute (2) Chronic systolic heart failure, ACC/AHA stage C Code(s): I50.22 - CHRONIC SYSTOLIC (CONGESTIVE) HEART FAILURE Status: Chronic (3) CKD stage 3 secondary to diabetes Code(s): E11.22 - TYPE 2 DIABETES MELLITUS W DIABETIC CHRONIC KIDNEY DISEASE; N18.3 - CHRONIC KIDNEY DISEASE, STAGE 3 (MODERATE) Status: Chronic (4) HTN (hypertension) Code(s): I10 - ESSENTIAL (PRIMARY) HYPERTENSION Status: Chronic Qualifiers: (5) Hx of cancer of lung Code(s): Z85.118 - PERSONAL HISTORY OF MALIGNANT NEOPLASM OF BRONCHUS AND LUNG Status: Chronic (6) Morbid obesity Code(s): E66.01 - MORBID (SEVERE) OBESITY DUE TO EXCESS CALORIES Status: Chronic (7) Sleep apnea Code(s): G47.30 - SLEEP APNEA, UNSPECIFIED Status: Suspected - Plan old records reviewed/req CT A chest inconclusive will get V/Q scan medication reviewed and continue to provide symptomatic care
[2019-12-04] MEDS ORDERED: GABAPENTIN 300 MG PO SCH (15:00)
--- NOTE | 2019-12-04 16:23 | NM ---
Exam: Nuclear medicine ventilation/perfusion scan COMPARISON: 05/12/2017 Correlation: CT angiogram of the chest 12/04/2019 TECHNIQUE: Patient was ministered 7.4 mCi of xenon gas for ventilation imaging. The patient was admin istered 5.5 mCi of technetium 99 MAA for perfusion imaging FINDINGS: Ventilation imaging: Homogeneous distribution of the radiotracer. Minimal retention suggesting a comp onent of COPD Perfusion imaging: Heterogeneous distribution of the radiotracer. There is a segmental ventilation/pe rfusion mismatch involving the middle lobe. Findings suggest a indeterminant probability/intermediate probability for pulmonary artery embolism IMPRESSION: 1. Segmental ventilation/perfusion mismatch in the middle lobe. Correlation made with CT does demonst rate scarring, unchanged from a previous exam in November 2017. Intermediate/indeterminate probability for pulmonary artery embolism.
[2019-12-04] MEDS: Gabapentin 300 MG CAP PO SCH ×2 (16:48→20:51)
[2019-12-04] MEDS ORDERED: ALPRAZolam 1 MG TAB PO PRN (17:30)
[2019-12-04] MEDS: guaiFENesin ER 600 MG TAB PO SCH (20:51)
[2019-12-04] MEDS: Carvedilol 6.25 MG TAB PO SCH (20:51)
[2019-12-04] MEDS ORDERED: Non-Formulary Item 1 EACH (Insulin Glargine,Hum.Rec.Anlog [Lantus Solostar] 30 UNIT) SQ SCH (21:00)
[2019-12-04] MEDS ORDERED: Insulin Glargine 30 UNITS in Pre-Filled Syringe 1 EACH SC SCH (21:00)
[2019-12-04] MEDS ORDERED: Carvedilol 3.125 MG TAB PO SCH (21:00)
[2019-12-04] MEDS: Polyethylene Glycol 3350 17 GM Packet PO SCH (22:40)
[2019-12-05 08:19] VITALS: TEMP 98.1
[2019-12-05] MEDS ORDERED: Fish Oil 1,000 MG CAP PO SCH (09:00)
[2019-12-05] MEDS ORDERED: Non-Formulary Item 1 EACH (Omega-3 Fatty Acids/Fish Oil [Omega 3 1,000 Mg Softgel] 1 CAP) PO SCH (09:00)
[2019-12-05] MEDS ORDERED: Atorvastatin Calcium 20 MG TAB PO SCH (09:00)
[2019-12-05] MEDS ORDERED: Saccharomyces boulardii 250 MG CAP PO SCH (09:00)
[2019-12-05] MEDS: Carvedilol 6.25 MG TAB PO SCH (09:40)
[2019-12-05] MEDS: Aspirin 81 mg Enteric Coated Tablet PO SCH (09:40)
[2019-12-05] MEDS: Gabapentin 300 MG CAP PO SCH (09:40)
[2019-12-05] MEDS: Polyethylene Glycol 3350 17 GM Packet PO SCH (09:40)
[2019-12-05] MEDS: guaiFENesin ER 600 MG TAB PO SCH (09:40)
[2019-12-05 09:41] VITALS: BP 143/77
--- NOTE | 2019-12-05 14:17 | DIS ---
DATE OF ADMISSION: 12/04/2019 DATE OF DISCHARGE: 12/05/2019 PRIMARY CARE PHYSICIAN: Dr. Shaggy Murray. DISCHARGE DISPOSITION: Home. PRIMARY DISCHARGE DIAGNOSES: 1. Chest pain, ruled out acute coronary syndrome. 2. Mild acute kidney injury, improved. SECONDARY DISCHARGE DIAGNOSES: 1. Chronic systolic heart failure. 2. Chronic kidney disease, stage 3. 3. History of carotid stenosis. 4. Morbid obesity with BMI 36. 5. Diabetes, type 2. 6. Hypertension. 7. History of lung cancer. PRIMARY PROCEDURE/OPERATION: None. RADIOLOGICAL INVESTIGATION: Chest x-ray was unremarkable. CT angiography reported as conflicting finding of pulmonary embolism, but when we confirmed with Radiology that report was finally consistent with scar tissue in the lung that was making artifact to suspect for PE, but there was no PE. Ultrasound of lower extremity negative for DVT. Her ventilation perfusion scan was also showing scar tissue related with finding. SIGNIFICANT LABORATORY DATA: WBC 6.0, hemoglobin 11.6, and platelet 214. D-dimer 0.93. Sodium 140, creatinine 1.17. LDL 80. LFT normal. Troponin negative. DISCHARGE MEDICATIONS: 1. ProAir 2 puffs q.4 hourly p.r.n. 2. Nitroglycerin 0.4 mg sublingual p.r.n. 3. [place] one tablet q.8 hourly p.r.n. 4. Xanax 1 mg p.o. b.i.d. p.r.n. 5. Aspirin 81 mg daily. 6. Coreg 6.25 mg b.i.d. 7. Lasix 40 mg daily. 8. Gabapentin 300 mg p.o. t.i.d. 9. Lantus 30 units subcu in the evening. 10. Fish oil one capsule daily. 11. Lipitor 20 mg p.o. daily. 12. Metformin 500 mg p.o. b.i.d., start after 48 hours. 13. MiraLAX 17 g p.o. b.i.d. 14. Florastor 250 mg daily. 15. Mucinex 600 mg b.i.d. p.r.n. 16. The patient is taking Entresto at home per the patient and that is why we have asked the patient not to take lisinopril along with Entresto, but if the patient is not on Entresto, then we will prescribe lisinopril 5 mg p.o. daily. CONTRAINDICATION: None. The patient is already on beta-wili therapy and the patient already was on Entresto at home. We have not sent for lisinopril to her pharmacy. CODE STATUS: Full code. INPATIENT FUNCTIONAL ARCHITECT: Cardiology Group was consulted while in hospital. TEST RESULTS PENDING ON DISCHARGE: None. ALLERGIES: TESSAL[place] AND TORADOL. DISCHARGE PLAN: Posthospital, the patient will follow up with primary care physician in 1 week. The patient is instructed to make appointment with Dr. Dawn. HOSPITAL COURSE: A 74-year-old female, who was admitted by Jenna Alford. Please see her H and P for further details. The patient was having chest pain, which was right-sided, which was predominantly getting worse with movement. Her description of chest pain was consistent with musculoskeletal pain. In the emergency room, the patient has slightly elevated D-dimer and that is why CT angio was done, which showed conflicting finding of PE. Subsequently, we spoke with Radiology about CT scan finding and they recommended that given appropriate clinical scenario and her history of lung cancer that finding is related with the scar tissue rather than true PE. We did ultrasound of lower extremity that was negative for DVT. Ventilation perfusion scan was also unremarkable. The patient did not have any pleurisy or any shortness of breath and she remained on room air with stable vitals. The patient was observed and we ruled out cardiac etiology. The patient will continue all her previous medication. PHYSICAL EXAMINATION: The patient is seen and examined at the bedside today. VITAL SIGNS: Currently, temperature 98.1, pulse 93, blood pressure 143/77, and saturation 94% on room air. Weight 258 pounds. GENERAL: The patient is currently alert, awake, in no obvious acute distress. HEENT: Head; normocephalic, atraumatic. NECK: Supple. No JVD. No meningeal signs of irritation. LUNGS: Clear to auscultation without any rhonchi or rales. CARDIAC: S1 and S2 regular. No murmur. No gallop. No rub. ABDOMEN: Soft, benign. No peritoneal sign. EXTREMITIES: No edema. NEUROLOGIC: Nonfocal examination. The patient is medically stable for discharge today. Job ID: [id number]
--- NOTE | 2019-12-08 00:53 | EKG ---
Test Reason : Blood Pressure : / mmHG Vent. Rate : 088 BPM Atrial Rate : 088 BPM P-R Int : 144 ms QRS Dur : 100 ms QT Int : 368 ms P-R-T Axes : 057 -09 -74 degrees QTc Int : 445 ms Normal sinus rhythm Minimal voltage criteria for LVH, may be normal variant Nonspecific T wave abnormality Abnormal ECG Confirmed by MIKE BAZAN ([id number]), editor school photograph PORFIRIO HOLDER ([id number]) on 12/08/2019 12:52:46 AM Referred By: Confirmed By:MIKE BAZAN
== END 2019-12-05 10:45 | disposition home or self-care (01) ==
LOC: ERS 19:17 → 2SW 12-04 02:44
PROVIDERS: ADMIT Internal Medicine; ATTEND Internal Medicine
DX: R07.89 Other chest pain (principal); I13.0 Hypertensive heart and chronic kidney disease with heart failure and stage 1 through stage 4 chronic kidney disease, or unspecified chronic kidney disease; E11.22 Type 2 diabetes mellitus with diabetic chronic kidney disease; N18.3 Chronic kidney disease, stage 3 (moderate); I50.22 Chronic systolic (congestive) heart failure; D63.1 Anemia in chronic kidney disease; N17.9 Acute kidney failure, unspecified; E78.5 Hyperlipidemia, unspecified; I25.10 Atherosclerotic heart disease of native coronary artery without angina pectoris; G47.33 Obstructive sleep apnea (adult) (pediatric); F17.220 Nicotine dependence, chewing tobacco, uncomplicated; I42.8 Other cardiomyopathies; F41.9 Anxiety disorder, unspecified; F20.9 Schizophrenia, unspecified; F31.9 Bipolar disorder, unspecified; F03.90 Unspecified dementia, unspecified severity, without behavioral disturbance, psychotic disturbance, mood disturbance, and anxiety; E66.01 Morbid (severe) obesity due to excess calories; Z68.36 Body mass index [BMI] 36.0-36.9, adult; Z85.038 Personal history of other malignant neoplasm of large intestine; Z85.118 Personal history of other malignant neoplasm of bronchus and lung; Z79.4 Long term (current) use of insulin; Z79.82 Long term (current) use of aspirin; Z79.899 Other long term (current) drug therapy; Z88.8 Allergy status to other drugs, medicaments and biological substances; Z95.810 Presence of automatic (implantable) cardiac defibrillator; Z90.49 Acquired absence of other specified parts of digestive tract
CPT/HCPCS: 71045; 71275; 78582; 80048; 80053; 80061; 82550; 82962 ×2; 84484 ×3; 85025 ×2; 85379; 93005; 93970; 94760; 97139 ×4; 99285; A9540; A9558; G0378 ×3; 36415; 36416; J1815; Q9967

== ENCOUNTER 2022-05-25 19:02 | Emergency (ER) | payer MEDICAID, MEDICARE, SELFPAY | END 2022-05-25 21:55 | disposition home or self-care (01) | LOC: ERS 19:02 | DX: J18.9 Pneumonia, unspecified organism (principal); J44.9 Chronic obstructive pulmonary disease, unspecified; E11.22 Type 2 diabetes mellitus with diabetic chronic kidney disease; I13.0 Hypertensive heart and chronic kidney disease with heart failure and stage 1 through stage 4 chronic kidney disease, or unspecified chronic kidney disease; I50.9 Heart failure, unspecified; N18.30 Chronic kidney disease, stage 3 unspecified; F03.90 Unspecified dementia, unspecified severity, without behavioral disturbance, psychotic disturbance, mood disturbance, and anxiety; F17.220 Nicotine dependence, chewing tobacco, uncomplicated | CPT/HCPCS: 71045 ==

== ENCOUNTER 2022-11-20 18:49 | Emergency (ER) | payer MEDICAID ==
[2022-11-20] MEDS ORDERED: methylPREDNISolone Sod Succ/PF 125 MG/2 ML VIAL ONE (19:31)
[2022-11-20 20:01] LABS: #Basophils 0.1 thou/uL (0.0-0.2); #Eosinphils 0.3 thou/uL (0.0-0.7); #Lymphocytes 1.9 thou/uL (1.20-3.40); #Monocytes 0.5 thou/uL (0.11-0.59); #Neutrophils 4.7 thou/uL (1.40-6.50); %Basophils 0.8 % (0.0-1.0); %Eosinophils 3.5 % (0.0-10.0); %Lymphocytes 25.9 % (21.0-51.0); %Monocytes 6.8 % (0.0-10.0); %Neutrophils 63.1 % (42.0-75.0); Hemoglobin 11.7 g/dL (12.0-16.0); Mean Corpuscular HGB CONC 32.8 g/dL (32.0-36.0); Mean Corpuscular Hemoglobin 33.2 pg (27.0-31.0); Mean Platelet Volume 7.5 fL (7.4-10.4); Platelet Count 183 10x3/uL (130-400); RBC Distribution Width 11.7 % (11.5-14.5); Red Blood Cell (RBC) Count 3.53 mill/uL (4.20-5.40); White Blood Cell (WBC) Count 7.5 10x3/uL (4.8-10.8)
[2022-11-20 20:20] LABS: ALT (SGPT) 8 U/L (8-55); AST (SGOT) 12 U/L (5-34); Albumin 3.7 g/dL (3.4-4.8); Alkaline Phosphatase 71 U/L (40-110); Anion Gap 14 mmol/L (10-20); BUN (Urea Nitrogen) 26 mg/dL (9.8-20.1); Bilirubin, Total 0.3 mg/dL (0.2-1.2); Calc. Creatinine Clearance 0 mL/min (70-130); Calcium 9.3 mg/dL (7.8-10.44); Carbon Dioxide 28 mmol/L (23-31); Chloride 104 mmol/L (98-107); Estimated GFR 30; Globulin 3.8 g/dL (2.4-3.5); Glucose 106 mg/dL (83-110); Potassium 4.3 mmol/L (3.5-5.1); Protein, Total 7.5 g/dL (5.8-8.1); Sodium 142 mmol/L (136-145)
[2022-11-20 21:21] LABS: SARS-CoV-2 NAA Rapid Test Not Detected (NotDetected)
== END 2022-11-20 22:30 | disposition home or self-care (01) ==
LOC: ERS 18:49
DX: J18.9 Pneumonia, unspecified organism (principal); E11.22 Type 2 diabetes mellitus with diabetic chronic kidney disease; N18.30 Chronic kidney disease, stage 3 unspecified; I13.0 Hypertensive heart and chronic kidney disease with heart failure and stage 1 through stage 4 chronic kidney disease, or unspecified chronic kidney disease; I50.9 Heart failure, unspecified; Z79.82 Long term (current) use of aspirin; Z79.4 Long term (current) use of insulin; Z20.822 Contact with and (suspected) exposure to COVID-19
CPT/HCPCS: 71045; 71275; 80053; 83880; 84484; 85025; 93005; 96374; J2930; Q9967

== ENCOUNTER 2023-02-06 14:09 | Outpatient (CLI) | payer OTHER, MEDICAID | END 2023-02-06 14:10 | disposition home or self-care (01) | LOC: BICRAD 14:09 | PROVIDERS: ATTEND Family Medicine | DX: R05.3 Chronic cough (principal); R93.89 Abnormal findings on diagnostic imaging of other specified body structures; M79.671 Pain in right foot | CPT/HCPCS: 71046 ==

== ENCOUNTER 2024-07-10 18:07 | Observation (INO) | payer OTHER ==
[2024-07-10 19:39] LABS: Actual Bicarbonate (HCO3v) 28.2 mEq/L (22-28); Analyzer IN Cardio ER; Base Excess 2.5 mEq/L (-2.0 to +3.0); Calcium, Ionized (venous) 1.12 mmol/L (1.16-1.32); Chloride (VBG) 101 mmol/L (98-106); Hematocrit-VBG 36 % (36.0-47.0); Hemoglobin (Hb) 12.2 g/dL (11.7-16.1); Potassium (VBG) 3.88 mmol/L (3.70-5.30); Sodium 139 mmol/L (133-146); pH (venous) 7.385 (7.32-7.43)
[2024-07-10] MEDS ORDERED: Meclizine HCl 25 MG TAB ONE (19:41)
[2024-07-10 19:53] LABS: #Basophils 0.04 10x3/uL (0.0-0.2); %Basophils 0.6 % (0.0-1.0); %Eosinophils 2.7 % (0.0-10.0); %Lymphocytes 24.9 % (21.0-51.0); %Monocytes 9.4 % (0.0-10.0); %Neutrophils 62.1 % (42.0-75.0); Hematocrit 34.2 % (36.0-47.0); Hemoglobin 11.1 g/dL (12.0-16.0); Mean Corpuscular HGB CONC 32.5 g/dL (32.0-36.0); Mean Corpuscular Hemoglobin 31.7 pg (27.0-31.0); Mean Corpuscular Volume 97.7 fL (78.0-98.0); Mean Platelet Volume 10.1 fL (7.4-10.4); Platelet Count 199 10x3/uL (130-400)
[2024-07-10 20:08] LABS: ALT (SGPT) 10 U/L (8-55); AST (SGOT) 15 U/L (5-34); Albumin 3.6 g/dL (3.4-4.8); Alkaline Phosphatase 83 U/L (40-110); Anion Gap 11 mmol/L (10-20); BUN (Urea Nitrogen) 45 mg/dL (9.8-20.1); Bilirubin, Total 0.2 mg/dL (0.2-1.2); Calc. Creatinine Clearance 0 mL/min (70-130); Calcium 9.3 mg/dL (7.8-10.44); Carbon Dioxide 29 mmol/L (23-31); Chloride 104 mmol/L (98-107); Estimated GFR 21; Globulin 2.8 g/dL (2.4-3.5); Glucose 144 mg/dL (83-110); Lipase 59 U/L (8-78); Potassium 3.9 mmol/L (3.5-5.1); Protein, Total 6.4 g/dL (5.8-8.1); Sodium 140 mmol/L (136-145)
[2024-07-10 20:15] LABS: Troponin I 0.026 ng/mL (< 0.028)
[2024-07-10 22:48] LABS: Bilirubin Negative (Negative); Blood, Urine Negative (Negative); CAUTI Indications for Culture Dysuria,urgency,freq; Clarity Clear (Clear); Glucose, Urine (Dipstick) Normal (Negative); Ketone, Urine Negative (Negative); Leukocyte Negative Leu/uL (Negative); Nitrite Negative (Negative); Protein, Urine (Dipstick) Negative (Neg-Trace); RBC/HPF 0-3 HPF (0-3); Specific Gravity, Urine 1.005 (1.002-1.036); Squamous Epithelial None Seen HPF (0-3); Urobilinogen Normal mg/dL (Less than 2); WBC/HPF 0-3 HPF (0-3); pH, Urine 5.5 (5.0-9.0)
[2024-07-10 22:50] LABS: Bacteria/HPF 1+ HPF (None Seen)
[2024-07-10 22:51] LABS: Urine Culture Reflex No No
[2024-07-11 00:36] LABS: Magnesium 1.9 mg/dL (1.6-2.6)
[2024-07-11] MEDS ORDERED: Ondansetron PF 4 MG/2 ML Vial IVP PRN (01:51)
[2024-07-11] MEDS ORDERED: Furosemide 20 MG (2 mL) VIAL ONE (02:48)
[2024-07-11] MEDS ORDERED: Magnesium 2 GM/50 ML BAG (IN WATER) ONE (02:48)
[2024-07-11] MEDS: Furosemide 20 MG (2 mL) VIAL SLOW IVP SCH (02:56)
[2024-07-11] MEDS: Magnesium 2 GM/50 ML(in water) 2 GM in Premix 1 BAG IVPB SCH (02:57)
[2024-07-11 05:06] LABS: #Basophils 0.04 10x3/uL (0.0-0.2); %Basophils 0.7 % (0.0-1.0); %Eosinophils 2.6 % (0.0-10.0); %Lymphocytes 29.4 % (21.0-51.0); %Monocytes 8.9 % (0.0-10.0); %Neutrophils 58.1 % (42.0-75.0); Hematocrit 33.1 % (36.0-47.0); Hemoglobin 10.7 g/dL (12.0-16.0); Mean Corpuscular HGB CONC 32.3 g/dL (32.0-36.0); Mean Corpuscular Hemoglobin 31.7 pg (27.0-31.0); Mean Corpuscular Volume 97.9 fL (78.0-98.0); Mean Platelet Volume 9.8 fL (7.4-10.4); Platelet Count 185 10x3/uL (130-400); RBC Distribution Width 12.8 % (11.5-14.5); Red Blood Cell (RBC) Count 3.38 mill/uL (4.20-5.40)
[2024-07-11 05:19] LABS: Anion Gap 12 mmol/L (10-20); BUN (Urea Nitrogen) 41 mg/dL (9.8-20.1); Calc. Creatinine Clearance 0 mL/min (70-130); Calcium 9.3 mg/dL (7.8-10.44); Carbon Dioxide 26 mmol/L (23-31); Chloride 106 mmol/L (98-107); Estimated GFR 30; Glucose 139 mg/dL (83-110); Potassium 3.7 mmol/L (3.5-5.1); Sodium 140 mmol/L (136-145)
[2024-07-11] MEDS ORDERED: Furosemide 20 MG (2 mL) VIAL SLOW IVP SCH ×2 (06:00)
[2024-07-11] MEDS ORDERED: Heparin 5,000 UNITS/ML VIAL ONE (10:37)
[2024-07-11] MEDS ORDERED: Ondansetron PF 4 MG/2 ML Vial ONE (10:37)
[2024-07-11] MEDS ORDERED: Meclizine HCl 25 MG TAB ONE (10:37)
[2024-07-11] MEDS ORDERED: Fioricet 325/50/40 mg Tablet ONE (10:38)
[2024-07-11] MEDS: Heparin 5,000 UNITS/ML VIAL SC SCH (10:43)
[2024-07-11] MEDS: Fioricet 325/50/40 mg Tablet PO SCH (10:47)
[2024-07-11] MEDS: Meclizine HCl 25 MG TAB PO PRN (10:48)
[2024-07-11] MEDS: Sodium Chloride 0.9% 1,000 ML IV SCH (10:48)
[2024-07-11] MEDS: Ondansetron ODT 4 MG TAB PO PRN (10:48)
[2024-07-11 16:51] VITALS: BMI 34.7
[2024-07-11] MEDS ORDERED: Glucagon 1 MG/ML KIT IM PRN (17:03)
[2024-07-11] MEDS ORDERED: Dextrose 5% in Water 1,000 ML IV PRN (17:03)
[2024-07-11] MEDS ORDERED: Dextrose 50% Abboject 50 ML SYRINGE SLOW IVP PRN (17:03)
[2024-07-11] MEDS: Acetaminophen 325 MG TAB PO PRN (20:56)
[2024-07-12 05:43] LABS: #Basophils 0.03 10x3/uL (0.0-0.2); %Basophils 0.6 % (0.0-1.0); %Eosinophils 4.3 % (0.0-10.0); %Lymphocytes 34.4 % (21.0-51.0); %Neutrophils 50.5 % (42.0-75.0); Hematocrit 35.6 % (36.0-47.0); Hemoglobin 11.4 g/dL (12.0-16.0); Mean Corpuscular Hemoglobin 31.6 pg (27.0-31.0); Mean Corpuscular Volume 98.6 fL (78.0-98.0); Mean Platelet Volume 10.1 fL (7.4-10.4); Platelet Count 173 10x3/uL (130-400); RBC Distribution Width 13.1 % (11.5-14.5); Red Blood Cell (RBC) Count 3.61 mill/uL (4.20-5.40)
[2024-07-12 06:29] LABS: Anion Gap 9 mmol/L (10-20); BUN (Urea Nitrogen) 29 mg/dL (9.8-20.1); Calc. Creatinine Clearance 56 mL/min (70-130); Calcium 9.1 mg/dL (7.8-10.44); Carbon Dioxide 26 mmol/L (23-31); Chloride 109 mmol/L (98-107); Estimated GFR 35; Glucose 129 mg/dL (83-110); Potassium 4.2 mmol/L (3.5-5.1); Sodium 140 mmol/L (136-145)
[2024-07-12] MEDS: FLU (Fluad Triv) TS24-25 (65UP)/MF59C/PF 45 MCG/0.5 ML Syringe IM ONE (10:05)
[2024-07-12] MEDS: Insulin Regular, Human 100 UNIT/ML 10 ML VIAL SC PRN (12:31)
[2024-07-12 18:11] VITALS: BP 109/72; TEMP 98.2
== END 2024-07-12 19:02 | disposition home or self-care (01) ==
LOC: ERS 18:07 → ERHOLD 07-11 00:52 → 2SW 07-11 16:09
PROVIDERS: ADMIT Internal Medicine; ATTEND Hospitalist
DX: R42 Dizziness and giddiness (principal); N17.9 Acute kidney failure, unspecified; I13.0 Hypertensive heart and chronic kidney disease with heart failure and stage 1 through stage 4 chronic kidney disease, or unspecified chronic kidney disease; N18.4 Chronic kidney disease, stage 4 (severe); E11.22 Type 2 diabetes mellitus with diabetic chronic kidney disease; I50.20 Unspecified systolic (congestive) heart failure; R29.6 Repeated falls; Z79.899 Other long term (current) drug therapy
CPT/HCPCS: 70450; 71045; 72125; 80048 ×2; 80053; 81001; 82805; 82962 ×2; 83690; 83735; 83880; 84145; 84484; 85025 ×3; 85379; 93005; 93306; 93880; 93970; 96372 ×3; 96374; 97116; G0378 ×3; J1644 ×2; J1815; J1940; J2405; J3475; J7030 ×2; Q0162; 36415; 36416; 96360; 96361